=== PATIENT | female | born 1950 | race Caucasian/White ===

== ENCOUNTER 2018-07-12 15:25 | Outpatient (REF) | payer MEDICARE, MEDICAID, SELFPAY ==
[2018-07-12 19:25] LABS: Hemoglobin A1C 6.1 % (4.5-6.2)
[2018-07-12 19:37] LABS: Anion Gap 8.5 mmol/L (3-11); BUN 13 mg/dL (7-18); CO2 28.5 mmol/L (21.0-32.0); CREATININE 1.12 mg/dL (0.55-1.02); Calcium 9.1 mg/dL (8.5-10.1); Chloride 107 mmol/L (98-107); Estimated GFR 48.23 (mL/min/1.73m2); Glucose 142 mg/dL (70-100); Potassium 3.9 mmol/L (3.5-5.1); Sodium 144 mmol/L (136-145); TSH 1.43 uIU/mL (0.358-3.74)
== END 2018-07-12 15:45 ==
LOC: NCHCN 15:25
PROVIDERS: PCP Internal Medicine; Visit Provider Internal Medicine
DX: I10 Essential (primary) hypertension (principal); M54.32 Sciatica, left side; E11.9 Type 2 diabetes mellitus without complications; I87.2 Venous insufficiency (chronic) (peripheral)
CPT/HCPCS: 80048; 83036; 84443

== ENCOUNTER 2019-10-06 12:46 | Outpatient (REF) | payer MEDICARE, SELFPAY ==
[2019-10-06 19:55] LABS: ALT 24 U/L (14-59); Anion Gap 9.3 mmol/L (3-11); BUN 20 mg/dL (7-18); CO2 25.7 mmol/L (21.0-32.0); CREATININE 0.97 mg/dL (0.55-1.02); Calcium 8.9 mg/dL (8.5-10.1); Chloride 106 mmol/L (98-107); Estimated GFR 56.77 (mL/min/1.73m2); Glucose 101 mg/dL (74-106); LDL CHOLESTEROL 54 mg/dL (<100); Potassium 4.4 mmol/L (3.5-5.1); Sodium 141 mmol/L (136-145)
== END 2019-10-06 13:06 ==
LOC: NCHCN 12:46
PROVIDERS: PCP Internal Medicine; Visit Provider Internal Medicine
DX: I10 Essential (primary) hypertension (principal); R73.03 Prediabetes; M54.32 Sciatica, left side; E66.9 Obesity, unspecified
CPT/HCPCS: 80048; 83721; 84460

== ENCOUNTER 2021-01-24 17:21 | Outpatient (REF) | payer MEDICARE, SELFPAY ==
[2021-01-24 19:13] LABS: HCT 42.1 % (36.0-46.0); HGB 13.4 g/dL (11.2-15.7); MCH 29.3 pg (27.0-33.0); MCHC 31.8 % (32.0-36.0); MCV 91.9 fL (80-95); Platelet Count 331 10^3/uL (130-400); RBC 4.58 10^6/uL (3.93-5.22); RDW 12.6 % (11.7-14.6); RDW-SD 42.5 fL; WBC 7.08 10^3/uL (4.4-10.8)
[2021-01-24 19:52] LABS: ALT 31 U/L (14-59); BUN 19 mg/dL (7-18); Calcium 9.1 mg/dL (8.5-10.1); Chloride 106 mmol/L (98-107); Estimated GFR 54.66 (mL/min/1.73m2); Glucose 106 mg/dL (74-106); LDL CHOLESTEROL 51 mg/dL (<100); Potassium 3.8 mmol/L (3.5-5.1); Sodium 144 mmol/L (136-145); TSH 0.95 uIU/mL (0.36-3.74)
== END 2021-01-24 17:22 | disposition home or self-care (01) ==
LOC: NCHCN 17:21
PROVIDERS: PCP Internal Medicine; Visit Provider Internal Medicine
DX: R73.03 Prediabetes (principal); E66.9 Obesity, unspecified; G25.0 Essential tremor; Z00.00 Encounter for general adult medical examination without abnormal findings
CPT/HCPCS: 80048; 83721; 85027; 84443; 84460

== ENCOUNTER 2022-02-03 17:01 | Outpatient (REF) | payer MEDICARE, SELFPAY ==
[2022-02-03 19:46] LABS: ALT 26 U/L (14-59); Anion Gap 6.3 mmol/L (3-11); BUN 18 mg/dL (7-18); CO2 30.7 mmol/L (21.0-32.0); CREATININE 1.2 mg/dL (0.55-1.02); Calcium 9.2 mg/dL (8.5-10.1); Calculated LDL 81 mg/dL (<100); Chloride 102 mmol/L (98-107); Cholesterol 176 mg/dL (<200); Estimated GFR 48.09 (mL/min/1.73m2); Glucose 140 mg/dL (74-106); HDL Cholesterol 51 mg/dL (40-60); Potassium 4.4 mmol/L (3.5-5.1); Sodium 139 mmol/L (136-145); Triglyceride 224 mg/dL (<150)
[2022-02-03 19:58] LABS: Creatine Kinase 35 U/L (26-192)
== END 2022-02-03 17:02 | disposition home or self-care (01) ==
LOC: NCHCN 17:01
PROVIDERS: PCP Internal Medicine; Visit Provider Internal Medicine
DX: G89.29 Other chronic pain (principal); M54.32 Sciatica, left side; Z00.00 Encounter for general adult medical examination without abnormal findings
CPT/HCPCS: 80048; 80061; 82550; 84460

== ENCOUNTER 2022-05-15 18:29 | Outpatient (REF) | payer MEDICARE, SELFPAY ==
[2022-05-15 19:22] LABS: Abs Immature Grans 0.09 10^3/uL (0.0-0.06); Absolute Basophil Count 0.12 10^3/uL (0.0-0.2); Absolute Eosinophil Count 0.31 10^3/uL (0.0-0.7); Absolute Lymphocyte Count 2.06 10^3/uL (1.2-3.4); Absolute Monocyte Count 0.72 10^3/uL (0.1-0.8); Absolute Neutrophil Count 5.31 10^3/uL (1.2-6.7); Basophils % 1.4; Eosinophils % 3.6; HGB 13.2 g/dL (11.2-15.7); Lymphocytes % 23.9; MCH 31.6 pg (27.0-33.0); MCHC 34.7 % (32.0-36.0); MCV 91 fL (80-95); MPV 10.1 fL (8.0-11.0); Monocytes % 8.4; Neutrophils % 61.7; Platelet Count 298 10^3/uL (130-400); RBC 4.18 10^6/uL (3.93-5.22); RDW 12.6 % (11.7-14.6); RDW-SD 40.9 fL; WBC 8.61 10^3/uL (4.4-10.8)
[2022-05-15 19:34] LABS: ALT 25 U/L (14-59); AST 16 U/L (15-37); Albumin 3.7 g/dL (3.4-5.0); Alkaline Phosphatase 78 U/L (46-116); Anion Gap 11.2 mmol/L (3-11); BUN 23 mg/dL (7-18); Bilirubin, Total 0.6 mg/dL (0.2-1.0); CO2 26.8 mmol/L (21.0-32.0); CREATININE 1.2 mg/dL (0.55-1.02); Calcium 9.4 mg/dL (8.5-10.1); Chloride 104 mmol/L (98-107); Estimated GFR 48.09 (mL/min/1.73m2); Glucose 122 mg/dL (74-106); Potassium 3.9 mmol/L (3.5-5.1); Sodium 142 mmol/L (136-145); Total Protein 7.3 g/dL (6.4-8.2); Troponin I < 50 ng/L (<or=60)
[2022-05-15 19:53] LABS: D-Dimer 702 ng/mlFEU (<500)
== END 2022-05-15 18:30 | disposition home or self-care (01) ==
LOC: NCHCN 18:29
PROVIDERS: PCP Internal Medicine; Visit Provider Internal Medicine
DX: R73.9 Hyperglycemia, unspecified (principal); I95.9 Hypotension, unspecified; J18.9 Pneumonia, unspecified organism
CPT/HCPCS: 80053; 84484; 85025; 85379

== ENCOUNTER 2024-02-24 22:29 | Outpatient (REF) | payer MEDICARE, SELFPAY ==
--- OUTSIDE RECORDS SUMMARY | 2024-02-24 22:42 | XMS_ITS | Clinical Summary ---
Author Organization [facility] Address [address] [place] [address] Care Team Providers Care Imaging Administrator Name Role Phone Henrry Alonso MD Primary Care Provider Social History Tobacco Use Types Packs/Day Years Used Date Smoking Tobacco: Never Assessed Comments Unknown Sex and Gender Information Value Date Recorded Sex Assigned at Not on file Legal Sex Female 18:51 EST Gender Identity Not on file Sexual Orientation Not on file Plan of Treatment Health Maintenance Due Date Last Done Comments Hepatitis C Screen 1950 Fall Risk Screening 2014 COVID-19 Vaccine (2023-25 season) 2023 RSV Immunization ( o r 60+ Years) (1 - 1-dose 75+ series) 2024 Insurance MEDICAID [place] [facility] Address: [address] [address] MEDICARE ACO [place] Care Teams Imaging Administrator Relationship Specialty Start Date End Date Henrry Alonso MD [address] [place] [phone] (work) PCP - General Internal Medicine - Primary Care 10/07/21
--- OUTSIDE RECORDS SUMMARY | 2024-02-24 22:42 | XMS_ITS | Continuity of Care Document ---
Author Organization [facility] Address [address] [place] [address] Care Team Providers Care Account Executive Trainee Name Role Phone Henrry Montiel Primary Care Physician Encounter [facility] Date(s): 06/08/23 - 06/08/[address] [id number] Discharge Disposition: Home or Self Care Attending Physician: Henrry Montiel MD Admitting Physician: Henrry Montiel MD Referring Physician: Henrry Montiel MD Allergies, Adverse Reactions, Alerts Substance Reaction Severity Status lisinopril Not available Moderate Active gabapentin Unknown Active penicillin V potassium Hives Unknown Activ e Hay Unknown Active Fiorinal Unknown Active Lyrica Unknown Active Chantix Unknown Active aspirin/butalbital/caffeine Not available Unknown Active Dust Unknown Active Immunizations Given and Recorded Vaccine Date Status Refusal Reason SARS-CoV-2 (COVID-19) mRNA-1273 vaccine 08/02/21 R ecorded SARS-CoV-2 (COVID-19) mRNA-1273 vaccine 01/24/21 R ecorded SARS-CoV-2 (COVID-19) mRNA-1273 vaccine 06/14/20 R ecorded SARS-CoV-2 (COVID-19) mRNA-1273 vaccine 05/17/20 R ecorded Medications acetaminophen-codeine 300 mg-30 mg oral tablet 1 tab, every 8 hr, 0 Refill(s) Start Date: 11/07/21 Status: Ordered buPROPion 150 mg/12 hours (SR) oral tablet, extended release 150 mg = 1 tab, Oral, Daily, # 180 tab, 0 Refill(s) Start Date: 10/29/21 Status: Ordered Delica Lancets 0 Refill(s) Start Date: 10/28/21 Status: Ordered Fish Oil 1000 mg oral capsule 1,000 mg = 1 cap, Oral, Daily, 0 Refill(s) Start Date: 10/28/21 Status: Ordered lisinopril-hydroCHLOROthiazide 20 mg-25 mg oral tablet 1 tab, Oral, Daily, # 30 tab, 0 Refill(s) Start Date: 10/29/21 Status: Ordered Melatonin Gummies 2 gummies, Chewed, every night at bedtime, 0 Refill(s) Start Date: 12/16/22 Status: Ordered multivitamin adult, oral tablet 0 Refill(s) Start Date: 10/28/21 Status: Ordered pantoprazole 40 mg oral delayed release tablet 40 mg = 1 tab, Oral, Daily, # 30 tab, 0 Refill(s) Start Date: 10/29/21 Status: Ordered propranolol 20 mg oral tablet 20 mg = 1 tab, Oral, Daily, # 180 tab, 0 Refill(s) Start Date: 10/29/21 Status: Ordered simvastatin 40 mg oral tablet 40 mg = 1 tab, Oral, every day at bedtime, # 30 tab, 0 Refill(s) Start Date: 10/29/21 Status: Ordered traZODone 50 mg oral tablet 50 mg = 1 tab, every night at bedtime, 0 Refill(s) Start Date: 11/07/21 Status: Ordered Ventolin HFA 90 mcg/inh inhalation aerosol 1 puffs, Inhale, every 4 hr, PRN as needed for wheezing, # 18 g, 0 Refill(s) Start Date: 10/29/21 Status: Ordered Vitamin C 1000 mg oral tablet 1,000 mg = 1 tab, Oral, Daily, # 30 tab, 0 Refill(s) Start Date: 10/29/21 Status: Ordered Problem List Condition Confirmation Course Effective Dates Status H ealth Status Informant Adjustment disorder Confirmed Active Anxiety Confirmed Active Asthma Confirmed Active Depression Confirmed Active Hernia of abdominal wall Confirmed Active Essential tremor Confirmed Active Fatigue Confirmed Active Chronic GERD Confirmed Active 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 1 Sex Female 1Quit 2020 Patient Care team information Care Team Personnel Name: [facility] Position: No Access Member Role: Primary Care Physician Address: Address: [address] Name: [facility] Position: Physician Member Role: Informed Provider Address: Address: [address] [place] [address] Care Team Related Persons Name: BENJI HARVEY Name: NADINE WOODALL
--- OUTSIDE RECORDS SUMMARY | 2024-02-24 22:42 | XMS_ITS | Clinical Summary ---
Author Organization [facility] Address [place] [address] Care Team Providers Care Human Resource Internship Name Role Phone Henrry Alonso MD Primary Care Provider [phone] Social History Tobacco Use Types Packs/Day Years Used Date Smoking Tobacco: Never Assessed Sex and Gender Information Value Date Recorded Sex Assigned at Not on file Gender Identity Not on file Sexual Orientation Not on file Plan of Treatment Health Maintenance Due Date Last Done Comments CT Colonography 1950 Colonoscopy 1950 Colorectal Cancer Screening 1950 FIT DNA 1950 FIT 1950 Sigmoidoscopy (10 year) with FIT yearly 1950 Sigmoidoscopy 1950 Hepatitis C Screening 06/25/1967 Tetanus/Diphtheria/Pertussis Vaccines (1 - Tdap) 1968 Breast Cancer Share Decision Needed 1989 Breast Cancer screening 1989 Zoster vaccine (1 of 2) 06/25/1999 Advance Directive 2004 Bone Density Scan 2014 Pneumoccocal Vaccine: 65+ (1 of 1 - PCV) 2014 Covid-19 Vaccine ( - 2023-2 5 season) 2023 08/02/2021, 01/24/2021, 06/14/2020, Additional history exists Influenza (Flu) vaccine (1 o f 1 - Influenza standard series) 11/08/2023 Care Teams Human Resource Internship Relationship Specialty Start Date End Date Henrry Alonso MD [address] [place] [address] PCP - General 01/29/10
--- OUTSIDE RECORDS SUMMARY | 2024-02-24 22:42 | XMS_ITS | Encounter Summary ---
Author Organization [facility] Address [address] [place] [address] Care Team Providers Care Computer Numerical Control Grinder Name Role Phone Henrry Alonso MD Primary Care Provider [phone] Encounter Details Date Type Department Care Team (Late st Contact Info) Description 11/18/2021 Lab Requisition [facility] Pathology & Laboratory Medicine - [facility] [address] [place] [address] Nigel Hameed [address] [address] Encounter for other general examination Social History Tobacco Use Types Packs/Day Years Used Date Smoking Tobacco: Never Assessed Comments Unknown Sex and Gender Information Value Date Recorded Sex Assigned at Not on file Legal Sex Female 18:51 EST Gender Identity Not on file Sexual Orientation Not on file documented as of this encounter Plan of Treatment Not on file documented as of this encounter Procedures Procedure Name Priority Date/Time Associated Diagnosis Comments SURGICAL PATHOLOGY Today 11/18/2021 8:26 EDT documented in this encounter Results * SURGICAL PATHOLOGY (11/18/2021 8:26 EDT) Note to Patient The following pathology results have been interpreted by your pathologist and may be available to you before your health provider has had the opportunity to review them. Please allow time for your provider to receive these results and explore management options, if applicable. 11/21/2021 10:00 EDT [facility] Final Diagnosis A. COLON, CECUM, POLYPS, BIOPSY: - Tubular adenoma. B. COLON, ASCENDING, POLYP, BIOPSY: - Tubular adenoma. C. COLON, TRANSVERSE, POLYPS, BIOPSY: - Tubular adenoma. 11/21/2021 10:00 [facility] Attestation There was significant resident/fellow involvement in the diagnostic evaluation of this case. By the signature below, the attending physician certifies that they have personally conducted a gross and/or microscopic examination of the described specimens and rendered or confirmed the above diagnosis. 11/21/2021 10:00 [facility] at 1000 Clinical History Family H/O colon cancer, 5 polyps, sigmoid colon diverticulosis 11/21/2021 10:00 [facility] Gross Description A. NOTE TO PATHOLOGIST: The requisition lists the specimen as cecal polyps x2, however only one piece of tissue is identified in the specimen container. Received in formalin labelled with proper patient identification (initials G, S) and A. Cecal polyps x2 is a single rome-yellow tissue fragment (0.4 x 0.3 x 0.1 cm). Submitted intact in A1. B. Received in formalin labelled with proper patient identification (initials G, S) and B. Ascending colon polyp is a single rome-white polypoid tissue (0.4 x 0.3 x 0.1 cm) with opaque rome mucosa attached to one end (0.2 x 0.2 by less than 0.1 cm).. The specimen is bisected and entirely submitted in B1. C. Received in formalin labelled with proper patient identification (initials G, S) and C. Transverse colon x2 are two opaque rome focally dark brown speckled tissues (0.8 x 0.5 by less than 0.1 cm and 0.6 x 0.6 by less than 0.1 cm). Entirely submitted in C1. GATITO YOST 11/19/2021 8:47 11/21/2021 10:00 [facility] Resident/Bharat w: Sea Segura MD 11/21/2021 10:00 [facility] Performing Lab [facility] 11/21/2021 10:00 [facility] Scanned Images 11/21/2021 10:00 [facility] Tissue ENTIRE TRANSVERSE COLON / Unknown 11/18/2021 8:26 EDT 11/19/2021 7:47 EDT Tissue specimen (specimen) ASCENDING COLON STRUCTURE / Unknown 11/18/2021 8:26 EDT 11/19/2021 7:47 EDT Tissue specimen (specimen) TRANSVERSE COLON STRUCTURE / Unknown 11/18/2021 8:26 EDT 11/19/2021 7:47 EDT us Nigel Hameed PATHOLOGY ORDERABLES Final Res ult [facility] [address] [place] [address] documented in this encounter Visit Diagnoses Diagnosis Encounter for other general examination documented in this encounter Care Teams Computer Numerical Control Grinder Relationship Specialty Start Date End Date Henrry Alonso MD [address] [place] [address] PCP - General Internal Medicine - Primary Care 10/07/21 documented as of this encounter
--- OUTSIDE RECORDS SUMMARY | 2024-02-24 22:42 | XMS_ITS | Encounter Summary ---
Author Organization [facility] Address [address] [place] [address] Care Team Providers Care Stretching Machine Tender Frame Name Role Phone Henrry Alonso MD Primary Care Provider [phone] Encounter Details Date Type Department Care Team (Late st Contact Info) Description 01/01/2023 Lab Requisition [facility] Pathology & Laboratory Medicine - [address] [address] Salo Owusu MD [address] [place] [phone] Encounter for other general examination Social History [...] Date/Time Associated Diagnosis Comments SURGICAL PATHOLOGY Today 12/31/2022 19 :28 EDT documented in this encounter Results * SURGICAL PATHOLOGY (12/31/2022 19:28 EDT) Note to Patient The following pathology results have been interpreted by your pathologist and may be available to you before your health provider has had the opportunity to review them. Please allow time for your provider to receive these results and explore management options, if applicable. 01/06/2023 17:58 EDT [facility] Final Diagnosis A. GALLBLADDER, CHOLECYSTECTOMY: - Chronic cholecystitis. - Cholelithiasis. 01/06/2023 17:58 EDT [facility] Attestation By the signature below, the attending physician certifies that they have 1) personally conducted a gross and/or microscopic examination of the described specimen(s), and/or personally interpreted the results of laboratory testing of the described specimen(s), and 2) personally rendered or confirmed the above diagnosis. 01/06/2023 17:58 T [facility] at 1758 Clinical History Acute cholecystitis 01/06/2023 17:58 EDT [facility] Gross Description A. Received in formalin labelled with proper patient identification (initials G, S) and gallbladder is an intact gallbladder with an attached segment of cystic duct (7.7 x 3.5 x 2.6 cm). A cystic duct lymph node is not present. The serosa is red-brown to pink-rome. The mucosa is velvety, rome to focally red-brown and the wall is 0.4 cm in thickness. The cystic duct lumen is patent and measures 0.2 cm in diameter. The cystic duct margin is inked blue. Two black granular to smooth calculi are present (0.8 x 0.7 x 0.4 cm and 2.0 x 2.0 x 1.6 cm). Two manufacturer's representative sections and the en face cystic duct margin are submitted in A1. GUICHO CÁRDENAS(ASCP) 01/02/2023 9:43 01/06/2023 17:58 EDT [facility] Performing Lab [facility] 01/06/2023 17:58 T [facility] Scanned Images 01/06/2023 17:58 T [facility] Tissue GALLBLADDER STRUCTURE / Unknown 12/31/2022 19:28 EDT 01/02/2023 8:16 EDT us Salo Owusu MD PATHOLOGY ORDERABLES Final Resul t [facility] [address] [place] [address] documented in this encounter Visit Diagnoses Diagnosis Encounter for other general examination documented in this encounter Care Teams Stretching Machine Tender Frame Relationship Specialty Start Date End Date Primeau, Henrry E, MD [address] [place] [address] PCP - General Internal Medicine - Primary Care 10/07/21 documented as of this encounter
--- OUTSIDE RECORDS SUMMARY | 2024-02-24 22:42 | XMS_ITS | Referral Summary ---
Author Organization [facility] Address [address] [place] [address] Care Team Providers Care Capital Project Engineer Name Role Phone Henrry Alonso MD Primary Care Provider Social History Tobacco Use Types Packs/Day Years Used Date Smoking Tobacco: Never Assessed Comments Unknown Sex and Gender Information Value Date Recorded Sex Assigned at Not on file Legal Sex Female 18:51 EST Gender Identity Not on file Sexual Orientation Not on file Plan of Treatment Not on file Insurance [place]ID [place] [employer] Care Teams Capital Project Engineer Relationship Specialty Start Date End Date Henrry Alonso MD [address] [place] [address] PCP - General Internal Medicine - Primary Care 10/07/21
--- OUTSIDE RECORDS SUMMARY | 2024-02-24 22:42 | XMS_ITS | Continuity of Care Document ---
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 [address] [place] [address] Encounter Diagnosis Acute cholecystitis(Discharge Diagnosis) - 12/30/22 Impacted gallstone of gallbladder(Discharge Diagnosis) - 12/30/22 HTN (hypertension)(Discharge Diagnosis) - 12/30/22 HLD (hyperlipidemia)(Discharge Diagnosis) - 12/30/22 Major depressive disorder(Discharge Diagnosis) - 12/30/22 Hypomagnesemia(Discharge Diagnosis) - 01/01/23 Abdominal pain(Discharge Diagnosis) - 01/01/23 Asthma(Discharge Diagnosis) - 01/02/23 Essential tremor(Discharge Diagnosis) - 01/02/23 Sciatica(Discharge Diagnosis) - 01/02/23 Anemia(Discharge Diagnosis) - 01/02/23 Discharge Disposition: Home or Self Care Attending Physician: Brice Christine DO Admitting Physician: Krishan Torres TACK PULLER Allergies, Adverse Reactions, Alerts Substance Reaction Severity Status gabapentin Unknown Active penicillin V potassium Hives Unknown Activ e Hay Unknown Active Fiorinal Unknown Active Lyrica Unknown Active Chantix Unknown Active Dust Unknown Active Assessment and Plan Future Appointments Diagnostic Tests Pending * Surgical Pathology [facility] 12/31/22 Functional Status 01/01/23 Dinner Percent 50 12/31/22 Anti-Embolism Device Activity: Applied 12/31/22 Living Environment No Living Environmen t Information Available Lives In Multilevel home Lives With Other: Friend and he r grown son. Living Situation Home independently Patient's Responsibilities Other: Pt rep orts being (I) with all needs prior to admission. Home Equipment Cane 1 Special Services and Community Resources None 12/30/22 Family Member Travel History No recent t ravel Recent Travel History No recent travel Other exposure to Infectious Disease Non e 1Result Comment: Cane only used occasionally. Immunizations Given and Recorded Vaccine Date Status [...] 0 Refill(s) Start Date: 10/29/21 Status: Ordered Mental Status 12/30/22 Eye Opening Response Jamar Spontaneous ly Best Verbal Response Jamar Oriented Best Motor Response [place] Localizes to noxious stimuli [place] Coma Score 14 Problem List Condition Confirmation Course Effective Dates [...] Procedure Date Related Diagnosis Body Site Status Colonoscopy 11/17/21 Completed hand surgery Completed Hemorrhoidectomy Complete d Reconstruction of esophagus Completed Total knee arthroplasty C ompleted Results Laboratory List Name Date C-Reactive Protein (CRP) 01/02/23 CBC w/ Diff 01/02/23 Comprehensive Metabolic Panel 01/02/23 Magnesium Level 01/02/23 Phosphorus Level 01/02/23 Automated Diff 01/02/23 .Manual Differential ([facility]) 01/01/23 C-Reactive Protein (CRP) 01/01/23 CBC w/ Diff 01/01/23 Comprehensive Metabolic Panel 01/01/23 Magnesium Level 01/01/23 Phosphorus Level 01/01/23 Automated Diff 12/31/22 C-Reactive Protein (CRP) 12/31/22 CBC w/ Diff 12/31/22 Comprehensive Metabolic Panel 12/31/22 Magnesium Level 12/31/22 Phosphorus Level 12/31/22 SARS-CoV-2 (COVID-19) RNA (ID Now) 12/30 Urinalysis with Micro if Indicated and C ulture if Indicated 12/30/22 Automated Diff 12/30/22 Most recent to oldest [Reference Range]: 1 2 3 WBC [5.0-10.0 x10^3/mcL] 10.0 x10^3/mcL (01/02/23 7:05 AM) 10.8 x10^3/mcL *HI* (01/01/23 7:00 AM) 6.0 x10^3/mcL (12/31/22 6:55 AM) RBC [4.1-5.3 x10^6/mcL] 3.2 x10^6/mcL *LOW* (01/02/23 7:05 AM) 3.8 x10^6/mcL *LOW* (01/01/23 7:00 AM) 3.9 x10^6/mcL *LOW* (12/31/22 6:55 AM) Segs Man [40-75 %] 86 % *HI* (01/01/23 7:00 AM) Lymph Man [20-50 %] 7 % *LOW* (01/01/23 7:00 AM) Neutro Auto [40.0-75.0 %] 75.3 % *HI* (01/02/23 7:05 AM) 57.3 % (12/31/22 6:55 AM) 61.0 % (12/30/22 5:24 PM) Lymph Auto [20.0-50.0 %] 12.2 % *LOW* (01/02/23 7:05 AM) 26.3 % (12/31/22 6:55 AM) 22.1 % (12/30/22 5:24 PM) [place] Auto [2.0-15.0 %] 6.5 % (01/02/23 7:05 AM) 8.7 % (12/31/22 6:55 AM) 9.1 % (12/30/22 5:24 PM) Basophil Auto [0.0-1.0 %] 0.4 % (01/02/23 7:05 AM) 1.0 % (12/31/22 6:55 AM) 1.1 % *HI* (12/30/22 5:24 PM) [place] Man [2-15 %] 5 % (01/01/23 7:00 AM) Eos Man [1-6 %] 0 % *LOW* (01/01/23 7:00 AM) BUN [7-18 mg/dL] 6 mg/dL *LOW* (01/02/23 7:05 AM) 7 mg/dL (01/01/23 7:00 AM) 11 mg/dL (12/31/22 6:55 AM) UA Color Dark Yellow (12/30/22 6:03 PM) Glucose Level [74-106 mg/dL] 96 mg/dL (01/02/23 7:05 AM) 141 mg/dL *HI* (01/01/23 7:00 AM) 98 mg/dL (12/31/22 6:55 AM) Potassium Level [3.5-5.1 mmol/L] 3.9 mmol/L (01/02/23 7:05 AM) 3.9 mmol/L (01/01/23 7:00 AM) 4.2 mmol/L (12/31/22 6:55 AM) MCV [80.0-96.0 fL] 90.8 fL (01/02/23 7:05 AM) 91.5 fL (01/01/23 7:00 AM) 90.3 fL (12/31/22 6:55 AM) UA Urobilinogen Positive *ABN* (12/30/22 6:03 PM) RBC Morph Normal (01/01/23 7:00 AM) UA Bili [Negative] 1+ *ABN* (12/30/22 6:03 PM) CRP [<=10.0 mg/L] 117.2 mg/L *HI* (01/02/23 7:05 AM) 58.3 mg/L *HI* (01/01/23 7:00 AM) 24.5 mg/L *HI* (12/31/22 6:55 AM) UA Ketones Negative (12/30/22 6:03 PM) AST [15-37 unit/L] 28 unit/L (01/02/23 7:05 AM) 64 unit/L *HI* (01/01/23 7:00 AM) 56 unit/L *HI* (12/31/22 6:55 AM) ALT [14-59 unit/L] 130 unit/L *HI* (01/02/23 7:05 AM) 209 unit/L *HI* (01/01/23 7:00 AM) 244 unit/L *HI* (12/31/22 6:55 AM) MCHC [31.0-35.0 g/dL] 32.8 g/dL (01/02/23 7:05 AM) 32.8 g/dL (01/01/23 7:00 AM) 33.1 g/dL (12/31/22 6:55 AM) Sodium Level [136-145 mmol/L] 140 mmol/L (01/02/23 7:05 AM) 139 mmol/L (01/01/23 7:00 AM) 141 mmol/L (12/31/22 6:55 AM) UA Leuk Est Negative (12/30/22 6:03 PM) UA Nitrite Negative (12/30/22 6:03 PM) UA Glucose [Negative] Negative (12/30/22 6:03 PM) Hct [37.0-47.0 %] 28.7 % *LOW* (01/02/23 7:05 AM) 34.5 % *LOW* (01/01/23 7:00 AM) 35.3 % *LOW* (12/31/22 6:55 AM) Calcium Level [8.5-10.1 mg/dL] 7.8 mg/dL *LOW* (01/02/23 7:05 AM) 8.2 mg/dL *LOW* (01/01/23 7:00 AM) 8.5 mg/dL (12/31/22 6:55 AM) Phosphorus Level [2.6-4.7 mg/dL] 2.3 mg/dL *LOW* (01/02/23 7:05 AM) 3.2 mg/dL (01/01/23 7:00 AM) 4.0 mg/dL (12/31/22 6:55 AM) Albumin Level [3.4-5.0 g/dL] 2.1 g/dL *LOW* (01/02/23 7:05 AM) 2.6 g/dL *LOW* (01/01/23 7:00 AM) 2.6 g/dL *LOW* (12/31/22 6:55 AM) Protein Total [6.4-8.2 g/dL] 5.1 g/dL *LOW* (01/02/23 7:05 AM) 5.9 g/dL *LOW* (01/01/23 7:00 AM) 5.9 g/dL *LOW* (12/31/22 6:55 AM) UA Protein Negative (12/30/22 6:03 PM) MCH [26.0-32.0 pg] 29.7 pg (01/02/23 7:05 AM) 30.0 pg (01/01/23 7:00 AM) 29.9 pg (12/31/22 6:55 AM) Magnesium Level [1.8-2.4 mg/dL] 1.9 mg/dL (01/02/23 7:05 AM) 1.6 mg/dL *LOW* (01/01/23 7:00 AM) 1.6 mg/dL *LOW* (12/31/22 6:55 AM) Neutro Absolute 7.6 x10^3/mcL *NA* (01/02/23 7:05 AM) 3.4 x10^3/mcL *NA* (12/31/22 6:55 AM) 4.3 x10^3/mcL *NA* (12/30/22 5:24 PM) Bilirubin Total [0.2-1.0 mg/dL] 0.8 mg/dL (01/02/23 7:05 AM) 0.7 mg/dL (01/01/23 7:00 AM) 0.6 mg/dL (12/31/22 6:55 AM) Hgb [12.0-16.0 g/dL] 9.4 g/dL *LOW* (01/02/23 7:05 AM) 11.3 g/dL *LOW* (01/01/23 7:00 AM) 11.7 g/dL *LOW* (12/31/22 6:55 AM) Alk Phos [46-146 unit/L] 170 unit/L *HI* (01/02/23 7:05 AM) 179 unit/L *HI* (01/01/23 7:00 AM) 206 unit/L *HI* (12/31/22 6:55 AM) UA Blood Negative (12/30/22 6:03 PM) Band Man [0-5 %] 1 % (01/01/23 7:00 AM) UA Spec Grav 1.010 *NA* (12/30/22 6:03 PM) Platelets [130-450 x10^3/mcL] 236 x10^3/mcL (01/02/23 7:05 AM) 278 x10^3/mcL (01/01/23 7:00 AM) 241 x10^3/mcL (12/31/22 6:55 AM) CO2 [21-32 mmol/L] 24 mmol/L (01/02/23 7:05 AM) 28 mmol/L (01/01/23 7:00 AM) 27 mmol/L (12/31/22 6:55 AM) UA pH 6.0 *NA* (12/30/22 6:03 PM) eGFR Non-AA [>=60] 70 (01/02/23 7:05 AM) 57 *LOW* (01/01/23 7:00 AM) 54 *LOW* (12/31/22 6:55 AM) eGFR AA [>=60] 70 (01/02/23 7:05 AM) 57 *LOW* (01/01/23 7:00 AM) 54 *LOW* (12/31/22 6:55 AM) UA Appear Clear (12/30/22 6:03 PM) Chloride Level [98-107 mmol/L] 108 mmol/L *HI* (01/02/23 7:05 AM) 107 mmol/L (01/01/23 7:00 AM) 108 mmol/L *HI* (12/31/22 6:55 AM) RDW-CV [11.5-14.5 %] 13.0 % (01/02/23 7:05 AM) 12.5 % (01/01/23 7:00 AM) 12.5 % (12/31/22 6:55 AM) Imm Gran Auto [0.0-0.9 %] 1.2 % *HI* (01/02/23 7:05 AM) 0.8 % (12/31/22 6:55 AM) 0.9 % (12/30/22 5:24 PM) Slide Review Man Diff (01/01/23 7:00 AM) Abs Neut Man 9.4 x10^3/mcL *NA* (01/01/23 7:00 AM) Creatinine Level [0.55-1.02 mg/dL] 0.87 mg/dL (01/02/23 7:05 AM) 1.04 mg/dL *HI* (01/01/23 7:00 AM) 1.09 mg/dL *HI* (12/31/22 6:55 AM) SARS-CoV-2 (COVID-19) RNA (ID Now) [Not Detected] Not Detected (12/30/22 7:24 PM) Baso Man [0-1 %] 1 % (01/01/23 7:00 AM) Eos, Auto [1.0-6.0 %] 4.4 % (01/02/23 7:05 AM) 5.9 % (12/31/22 6:55 AM) 5.8 % (12/30/22 5:24 PM) Vital Signs Most recent to oldest [Reference Range]: 1 2 3 Temperature Axillary [35.2-38 Deg C] 36 Deg C (12/31/22 7:33 PM) 36.2 Deg C (12/31/22 5:30 PM) 36.2 Deg C (12/31/22 5:13 PM) Temperature Temporal Artery [36-38 Deg C] 37.5 Deg C (01/02/23 7:53 AM) 37.4 Deg C (01/02/23 3:49 AM) 37 Deg C (01/02/23 12:01 AM) Peripheral Pulse Rate [60-100 bpm] 75 bpm (01/02/23 9:50 AM) 76 bpm (01/02/23 7:53 AM) 72 bpm (01/02/23 3:49 AM) Heart Rate Monitored [60-100 bpm] 75 bpm (01/02/23 9:50 AM) 58 bpm *LOW* (12/31/22 7:33 PM) 62 bpm (12/31/22 7:30 PM) Respiratory Rate [12-24 br/min] 18 br/min (01/02/23 9:50 AM) 18 br/min (01/02/23 7:53 AM) 18 br/min (01/02/23 3:49 AM) Blood Pressure [90-140/60-90 mmHg] 164/72mmHg *HI* (01/02/23 8:45 AM) 170/85mmHg *HI* (01/02/23 7:53 AM) 144/81mmHg *HI* (01/02/23 3:49 AM) Mean Arterial Pressure, Cuff [65-140 mmHg] 119 mmHg (12/31/22 7:33 PM) 127 mmHg (12/31/22 7:30 PM) 106 mmHg (12/31/22 7:25 PM) Mean Arterial Pressure Cuff 98 mmHg (01/02/23 8:45 AM) 107 mmHg (01/02/23 7:53 AM) 100 mmHg (01/02/23 3:49 AM) Blood Pressure Location Right arm (01/01/23 1:22 AM) Left arm (12/31/22 3:58 AM) Right arm (12/30/22 11:53 PM) Blood Pressure Method Automatic (01/01/23 1:22 AM) Automatic (12/31/22 3:58 AM) Automatic (12/30/22 11:53 PM) Weight 106.2 kg (01/02/23 8:55 AM) 107.5 kg (01/01/23 4:41 PM) 104.8 kg (12/31/22 8:58 AM) Weight Dosing 99.00 kg (12/30/22 5:03 PM) Usual Weight 105 kg (12/30/22 8:58 PM) Weight Estimated 99.00 kg (12/30/22 4:55 PM) Height/Length Dosing 162.000 cm (12/30/22 5:03 PM) Height/Length Estimated 162.000 cm (12/30/22 4:55 PM) Social History Social History Type Response Tobacco Former tobacco user Tobacco Use:. 1 Sex Female 1Quit 2020 Hospital Discharge Instructions Patient Education 01/02/2023 11:04:28 Surgical Drain Home Care Surgical Drain Home Care Surgical drains are used to remove extra fluid that normally builds up in a surgical wound after surgery. A surgical drain helps to heal a surgical wound. Different kinds of surgical drains include: ??? Active drains. These drains use suction to pull drainage away from the surgical wound. Drainageflows through a tube to a container outside of the body. With these drains, you need to keep the bulb or the drainage container flat (compressed) at all times, except while you empty it. Flattening the bulb or container creates suction. ??? Passive drains. These drains allow fluid to drain naturally, by gravity. Drainage flows througha tube to a bandage (dressing) or a container outside of the body. Passive drains do not need to beemptied. A drain is placed during surgery. Right after surgery, drainage is usually bright red and a little thicker than water. The drainage may gradually turn yellow or pink and become thinner. It is likely that your health care provider will remove the drain when the drainage stops or when the amount decreases to 1???2 Tbsp (15???30 mL) during a 24-hour period. Supplies needed: ??? Tape. ??? Germ-free cleaning solution (sterile saline). ??? Cotton swabs. ??? Split gauze drain sponge: 4 x 4 inches (10 x 10 cm). ??? Gauze square: 4 x 4 inches (10 x 10 cm). How to care for your surgical drain Care for your drain as told by your health care provider. This is important to help prevent infection. If your drain is placed at your back, or any other udse-ul-gpbit area, ask another person to assist you in performing the following tasks: General care ??? Keep the skin around the drain dry and covered with a dressing at all times. ??? Check your drain area every day for signs of infection. Check for: ??? Redness, swelling, or pain. ??? Pus or a bad smell. ??? Cloudy drainage. ??? Tenderness or pressure at the drain exit site. Changing the dressing Follow instructions from your health care provider about how to change your dressing. Change your dressing at least once a day. Change it more often if needed to keep the dressing dry. Make sure you: 1. Gather your supplies. 2. Wash your hands with soap and water before you change your dressing. If soap and water are not available, use hand recruitment assistant. 3. Remove the old dressing. Avoid using scissors to do that. 4. Wash your hands with soap and water again after removing the old dressing. 5. Use sterile saline to clean your skin around the drain. You may need to use a cotton swab to clean the skin. 6. Place the tube through the slit in a drain sponge. Place the drain sponge so that it covers yourwound. 7. Place the gauze square or another drain sponge on top of the drain sponge that is on the wound. Make sure the tube is between those layers. 8. Tape the dressing to your skin. 9. Tape the drainage tube to your skin 1???2 inches (2.5???5 cm) below the place where the tube enters your body. Taping keeps the tube from pulling on any stitches (sutures) that you have. 10. Wash your hands with soap and water. 11. Write down the color of your drainage and how often you change your dressing. How to empty your active drain 1. Make sure that you have a measuring cup that you can empty your drainage into. 2. Wash your hands with soap and water. If soap and water are not available, use hand recruitment assistant. 3. Loosen any pins or clips that hold the tube in place. 4. If your health care provider tells you to strip the tube to prevent clots and tube blockages: ??? Hold the tube at the skin with one hand. Use your other hand to pinch the tubing with your thumb and first finger. ??? Gently move your fingers down the tube while squeezing very lightly. This clears any drainage, clots, or tissue from the tube. ??? You may need to do this several times each day to keep the tube clear. Do not pull on the tube. 5. Open the bulb cap or the drain plug. Do not touch the inside of the cap or the bottom of the plug. 6. Turn the device upside down and gently squeeze. 7. Empty all of the drainage into the measuring cup. 8. Compress the bulb or the container and replace the cap or the plug. To compress the bulb or the container, squeeze it firmly in the middle while you close the cap or plug the container. 9. Write down the amount of drainage that you have in each 24-hour period. If you have less than 2 Tbsp (30 mL) of drainage during 24 hours, contact your health care provider. 10. Flush the drainage down the toilet. 11. Wash your hands with soap and water. Contact a health care provider if: ??? You have redness, swelling, or pain around your drain area. ??? You have pus or a bad smell coming from your drain area. ??? You have a fever or chills. ??? The skin around your drain is warm to the touch. ??? The amount of drainage that you have is increasing instead of decreasing. ??? You have drainage that is cloudy. ??? There is a sudden stop or a sudden decrease in the amount of drainage that you have. ??? Your drain tube falls out. ??? Your active drain does not stay compressed after you empty it. Summary ??? Surgical drains are used to remove extra fluid that normally builds up in a surgical wound after surgery. ??? Different kinds of surgical drains include active drains and passive drains. Active drains use suction to pull drainage away from the surgical wound, and passive drains allow fluid to drain naturally. ??? It is important to care for your drain to prevent infection. If your drain is placed at your back, or any other haxq-js-dyjij area, ask another person to assist you. ??? Contact your health care provider if you have redness, swelling, or pain around your drain area. This information is not intended to replace advice given to you by your health care provider. Make sure you discuss any questions you have with your health care provider. Document Revised: 03/30/2019 Document Reviewed: 03/30/2019 [employer] Patient Education ?? 2022 [email or web address]. 01/02/2023 08:34:06 Cholecystostomy, Care After Cholecystostomy, Care After The following information offers guidance on how to care for yourself after your procedure. Your health care provider may also give you more specific instructions. If you have problems or questions, contact your health care provider. What can I expect after the procedure? After your procedure, it is common to have soreness near the incision site of your drainage tube (catheter). You may also have a small amount of fluid or blood coming from the catheter incision site. Follow these instructions at home: Incision care ??? Follow instructions from your health care provider about how to take care of your incision sitewhere the catheter was inserted. Make sure you: ??? Wash your hands with soap and water for at least 20 seconds before and after you change your bandage (dressing). If soap and water are not available, use hand recruitment assistant. ??? Change your dressing as told by your health care provider. ??? Check the catheter incision site every day for signs of infection. Check for: ??? Redness, swelling, or pain. ??? More fluid or blood. ??? Warmth. ??? Pus or a bad smell. ??? Do not take baths, swim, or use a hot tub until your health care provider approves. Ask your health care provider if you may take showers. You may only be allowed to take sponge baths. General instructions ??? Follow instructions from your health care provider about how to care for your catheter and collection bag at home. Your health care provider will show you: ??? How to record the amount of drainage from the catheter. ??? How to flush the catheter. ??? How to care for the catheter incision site. ??? Follow instructions from your health care provider about eating or drinking restrictions. ??? Take abgk-cax-tndcmxe and prescription medicines only as told by your health care provider. ??? Keep all follow-up visits. This is important. Contact a health care provider if: ??? You have a fever. ??? Your soreness at the incision site gets worse or does not get better with medicine. ??? You have redness, swelling, or pain around the catheter incision site. ??? You have more fluid or blood coming from the catheter incision site. ??? You have nausea or vomiting. Get help right away if: ??? You feel dizzy or you faint while standing. ??? The area around the catheter incision site feels warm to the touch. ??? You have pus or a bad smell coming from the catheter incision site. ??? You have shortness of breath. ??? You have a rapid heartbeat. ??? Your catheter becomes blocked. ??? Your catheter comes out of your abdomen. These symptoms may be an emergency. Get help right away. Call 911. ??? Do not wait to see if the symptoms will go away. Do not drive yourself to the hospital. ??? Do not drive yourself to the hospital. Summary ??? After your procedure, it is common to have soreness near the catheter incision site. ??? Change your dressing as told by your health care provider. ??? Check the catheter incision site every day for signs of infection. Check for redness, swelling,pain, fluid, blood, pus, warmth, or a bad smell. ??? Follow instructions from your health care provider about eating or drinking restrictions. This information is not intended to replace advice given to you by your health care provider. Make sure you discuss any questions you have with your health care provider. Document Revised: 08/27/2021 Document Reviewed: 08/27/2021 [employer] Patient Education ?? 2022 [email or web address] 01/02/2023 08:34:03 Cholecystitis Cholecystitis Cholecystitis is inflammation of the gallbladder. Cholecystitis is often called a gallbladder attack. The gallbladder is a pear-shaped organ that lies beneath the liver on the right side of the body.The gallbladder stores a fluid that helps the body digest fats (bile). If bile builds up in your gallbladder, your gallbladder becomes inflamed and can develop a serious infection. This condition may occur suddenly. Cholecystitis is a serious condition and requires treatment. What are the causes? The most common cause of this condition is gallstones. Gallstones can block the tube (duct) that carries bile out of your gallbladder. This causes bile to build up. Other causes include: ??? Damage to the gallbladder due to decreased blood flow. ??? Infection in the bile duct. ??? Scars, kinks, or adhesions in the bile duct. ??? Tumors in the liver, pancreas, or gallbladder. What increases the risk? You are more likely to develop this condition if: ??? You are female and between the ages of 55???62. ??? You take control pills or use estrogen. ??? You take certain medicines that increase your likelihood of developing gallstones. ??? You are obese. ??? You have a severe reaction to an infection (sepsis). The infection may be bacterial, fungal, parasitic, or viral. ??? You have been hospitalized due to trauma, such as a burn or critical illness. ??? You have not eaten or drank for a long period of time (prolonged fasting). What are the signs or symptoms? Symptoms of this condition include: ??? Tenderness in the upper right part of the abdomen. ??? A lump over the gallbladder. ??? Bloating in the abdomen. ??? Nausea. ??? Vomiting. ??? Fever. ??? Chills. How is this diagnosed? This condition is diagnosed with a medical history and physical exam. You may also have other tests, including: ??? Imaging tests, such as: ??? An ultrasound of the abdomen. ??? A CT scan of the abdomen. ??? A gallbladder nuclear scan (HIDA cholescintigraphy). This allows your health care provider to see the bile moving from your liver to your gallbladder and to your small intestine. ??? MRI. ??? Blood tests, such as: ??? A complete blood count. The white blood cell count may be higher than normal. ??? C-reactive protein (CRP) test. The level of CRP will be higher if there is an infection. ??? Liver function tests. Certain types of gallstones cause some results to be higher than normal. How is this treated? Treatment may include: ??? Pain medicine and IV fluids. ??? Not eating or drinking (fasting). This helps to take stress off of your gallbladder. ??? Antibiotic medicine. This is usually given through an IV. ??? Surgery to remove your gallbladder (cholecystectomy). ??? Gallbladder drainage. In this procedure, a tube is placed into the gallbladder to drain fluid. This may be done for people with moderate to severe cholecystitis who cannot have surgery. Follow these instructions at home: Medicines ??? Take ntfv-bvb-tevzpal and prescription medicines only as told by your health care provider. ??? If you were prescribed an antibiotic medicine, take it as told by your health care provider. Donot stop taking the antibiotic even if you start to feel better. General instructions ??? Follow instructions from your health care provider about what to eat or drink. When you are allowed to eat, avoid eating or drinking anything that triggers your symptoms. ??? Do not use any products that contain nicotine or tobacco. These products include cigarettes, chewing tobacco, and vaping devices, such as e-cigarettes. If you need help quitting, ask your health care provider. ??? Keep all follow-up visits. This is important. Contact a health care provider if: ??? Your pain is not controlled with medicine. ??? You have a fever. Get help right away if: ??? Your pain moves to another part of your abdomen or to your back. ??? You continue to have symptoms or you develop new symptoms even with treatment. These symptoms may be an emergency. Get help right away. Call 911. ??? Do not wait to see if the symptoms will go away. ??? Do not drive yourself to the hospital. Summary ??? Cholecystitis is inflammation of the gallbladder. ??? The most common cause of this condition is gallstones. Gallstones can block the tube (duct) that carries bile out of your gallbladder. ??? Common symptoms include tenderness in the abdomen, nausea, vomiting, fever, and chills. ??? This condition is treated with fasting, pain medicine, surgery to remove the gallbladder, antibiotic medicines, and gallbladder drainage. ??? Follow your health care provider's instructions for eating and drinking. Avoid eating anything that triggers your symptoms. This information is not intended to replace advice given to you by your health care provider. Make sure you discuss any questions you have with your health care provider. Document Revised: 08/27/2021 Document Reviewed: 08/27/2021 Elsevier Patient Education ?? 2022 [employer] Follow Up Care 12/30/2022 16:55:24 With:Gavin [facility], Henrry Zabala MD Address: [address] [phone] When:01/09/2023 Comments:Hospital follow up With:Dickson Mercedes DO Address: [address] [place] [id number] When:01/06/2023 Comments:Drain removal Pharmacology Note * Rosanna Zeng: PERFORM Event Display: Pharmacy Note Authored Date: [id number] TelePharmacy Home Medication List Update for Medication Reconciliation ??? Person Interviewed: patient ??? Quality of Interview/accuracy of medication list: fair ??? Sources used to compile medication list: ???[facility] medication list ???SureScripts ?? PCP/Specialist list ?? Retail pharmacy ?? Patient list ?? MAR ?? Other ??? Changes made to home medication list: o Additions: ??? [id number] 1 cap po daily (not sure of dose unable to add to med list in [facility]) o Deletions: ??? None o Changes: ??? Propranolol 20mg po daily (was bid) ??? Buproprion SR 150mg po daily (was bid) ??? Additional Notes: o Updated medication list with information provided by patient. Patient was unsure of doses for OTCmedications including CoQ10, melatonin, Fish oil and Vitamin C. ??? Recommended changes: o None The home medication list is now updated to the best of my knowledge and is ready to be reconciled by the provider. Please contact the TelePharmacy Medication Reconciliation Pharmacist at for any questions. Discharge instructions * Chuyita Persaud D: PERFORM Event Display: Discharge Instructions Authored Date: [id number] ROBERT ARREAGA :1950 Age:72 years Sex:Female Visit Date:12/30/2022 Primary Care Physician: Henrry Hodge MD Hospital Discharge Instructions We would like to thank you for allowing us to assist you with your healthcare needs. The following includes patient education materials and information regarding your injury/illness. Your Next Steps Instructions From Your Care Team Advance diet as tolerated. ?? You will likely need??mild laxative like senna tablets??for constipation, due to your increased pain meds. ?? Call if you have fever, worsening pain or severe shortness of breath. ?? Follow Dr. Owusu's instructions for managing your drain.?? We will plan to pull that??early next week.?? I will see you in 1 week.?? dr Alonso Discharge Orders Discharge Bathing Instructions, Keep drain site dry Discharge Diet Instruction, Regular home diet Discharge Surgical Wound Instructions, Keep drain site dry Follow Up Appointments Follow Up with??Dickson Mercedes DO When:??01/06/2023 01:00 AM EDT Why: Drain removal Where: [address] [place] [address]- [facility]:??01/09/2023 02:30 AM EDT Why: Hospital follow up Where: [address] [phone] Medications What How Much When Instructions Next Dose Changed buPROPion (buPROPion 150 mg/ 12 hours (SR) oral tablet, extended release) 1 tab Oral (given by mouth) Every day Resume home dose Changed melatonin (Melatonin Gummies) 2 gummies Chewed Every night at bedtime 01/02 @ 9pm Changed omega-3 polyunsaturated fatty acids (Fish Oil 1000 mg oral capsule) 1 Capsules Oral (given by mouth) Every day 01/03 @ 9am Changed propranolol (propranolol 20 mg oral tablet) 1 tab Oral (given by mouth) Every day 01/03 @ 9am Unchanged acetaminophen-codeine (acetaminophen-codeine 300 mg-30 mg oral tablet) 1 tab Every 8 hours resume home dose Unchanged albuterol (Ventolin HFA 90 mcg/ inh inhalation aerosol) 1 Puffs Inhale (breathe in) Every 4 hours as needed for as needed for wheezing as needed Unchanged ascorbic acid (Vitamin C 1000 mg oral tablet) 1 tab Oral (given by mouth) Every day 01/03 @ 9am Unchanged Delica Lancets Unchanged lisinopril-hydroCHLOROthiazide (lisinopril-hydroCHLOROthiazide 20 mg- 25 mg oral tablet) 1 tab Oral (given by mouth) Every day Resume home dose Unchanged multivitamin (multivitamin adult, oral tablet) 01/03 @ 9am Unchanged pantoprazole (pantoprazole 40 mg oral delayed release tablet) 1 tab Oral (given by mouth) Every day 01/03 @ 7am Unchanged simvastatin (simvastatin 40 mg oral tablet) 1 tab Oral (given by mouth) Every night at bedtime 10 @ 5pm Unchanged traZODone (traZODone 50 mg oral tablet) 1 tab Every night at bedtime 01/02 @ 9pm ?? What How Much When Comments Stop Taking dilTIAZem (dilTIAZem 180 mg/ 24 hours oral capsule, extended release) 1 Capsules Oral (given by mouth) Every day Your Summary Your Care Team Admitting Physician - Krishan Torres NP Attending Physician - Brice Christine DO Consulting Physician - Francoise BLOODSalo MD Primary Care Physician - [facility] Your Diagnosis Acute cholecystitis Impacted gallstone of gallbladder HTN (hypertension) HLD (hyperlipidemia) Major depressive disorder Hypomagnesemia Abdominal pain Asthma Essential tremor Sciatica Anemia Discharge Vitals Temperature??(Temporal Artery) 99.5 ??F (37.5 ??C) Heart Rate??(Peripheral) 75 Heart Rate??(Monitored) 75 Respiratory Rate?? 18 Blood Pressure?? 164/72?? Weight?? 234.17 lb (106.2 kg) Allergies Chantix Dust Fiorinal Hay Lyrica gabapentin penicillin V potassium??(Hives) Patient/Textile Bag Sewer Signature Patient Name:ROBERT ARREAGA I have received this information and my questions have been answered. Patient/Textile Bag Sewer Name: Patient/Textile Bag Sewer Signature: Relationship to Patient: Witness Name/Signature: Date: Electronically Signed on: 01/02/2023 12:02 EDTSigned by:MDR Consult note * Salo Reddy MD: PERFORM Event Display: Consultation Note Generic Authored Date: [id number] ROBERT ARREAGA :1950 Age:72 years Sex:Female Visit Date:12/30/2022 Primary Care Physician: Henrry Hodge MD Complaint Pt sent in by [facility] for 4 days of intermittent R side flank pain with nausea and subjective fever. History of Present Illness 72-year-old female patient presents to the emergency department today with complaints of??intermittent abdominal pain with nausea.?? Her ER work-up found her to have??cholecystitis with an impacted gallstone at the gallbladder neck.?? Medical history significant for anxiety/depression, asthma, GERD,??essential tremor, hyperlipidemia, hypertension.?? She is seen and evaluated at the bedside in theemergency department where she is awake, alert, oriented x3 she is not in any acute distress. ??Shedenies fever, chills, vomiting, chest pain, shortness of breath. ??Denies weakness or dizziness anddenies changes in urinary or bowel habits. ??Case was discussed with the ER physician prior to admission.?? Patient will be admitted as an inpatient??and started on IV antibiotics due to the elevatedwhite blood cell count??as well as??the nature of her cholecystitis.?? We will continue to monitor her CBC and trend her??metabolic profile daily as she does have a transaminitis with the??impacted gallstone.? First episodes??seem to be about 4 weeks ago??which have escalated over the past??week Review of Systems Constitutional: ??No fevers, ??No chills, ??No sweats Eye: ??No recent visual problems ENT: ??No ear pain, ??No nasal congestion, ??No sore throat Respiratory: ??No shortness of breath, ??No cough Cardiovascular: ??No Chest pain, ??No palpitations, ??No syncope Gastrointestinal: ??Nonausea, ??No vomiting, ??No diarrhea Genitourinary: ??No hematuria Aram/Lymph: ??No bruising tendency, ??No swollen lymph glands Endocrine: ??No excessive thirst, No excessive hunger Musculoskeletal: No back pain, No neck pain, No joint pain, No muscle pain, No decreased range of motion Integumentary: ??No rash, ??No pruritus, ??No abrasions Neurologic: Alert & oriented X 4 Psychiatric: ??No anxiety, ??No depression Physical Exam Vitals & Measurements T:??36.6?C ??(Temporal Artery)?? TMIN:??36.2?C ??(Temporal Artery)?? TMAX:??37?C ??(Temporal Artery)?? HR:??57??(Peripheral)?? RR:??18?? BP:??153/72?? SpO2:??96%?? HT:??162.000??cm?? WT:??104.8??kg?? Pain Score:??3?? O2 Therapy:??Room air?? FiO2:??96??(%)?? Peers no acute distress HEENT??eyes are nonicteric??pupils are equal??conjunctiva is clear Trachea??is in the midline without deviation Abdomen is obese??midline incision and laparoscopic incisions??status post hernia repair and??open Jairo fundoplication Right sided pain to the palpation Assessment/Plan 1.??Acute cholecystitis??K81.0 Plan to proceed with a laparoscopic cholecystectomy??because of her previous surgeries with mesh placement??attempt to proceed??laparoscopically 2.??Impacted gallstone of gallbladder??K80.20 3.??HTN (hypertension)??I10 4.??HLD (hyperlipidemia)??E78.5 5.??Major depressive disorder??F32.9 Flank pain??R10.9 Problem List/Past Medical History Ongoing Adjustment disorder Anxiety Asthma Chronic GERD Colon polyp Depression Essential tremor Fatigue Hernia of abdominal wall HPV in female Hyperlipemia Hypertension Obesity Osteoarthritis, knee Prediabetes Sciatica Venous insufficiency Historical GERD with apnea Procedure/Surgical History ???Colonoscopy (11/18/2021)???Hemorrhoidectomy???hand surgery???Reconstruction of esophagus???[place] arthroplasty Medications Inpatient acetaminophen, 1000 mg= 2 tab, Oral, every 6 hr, PRN atorvastatin, 20 mg= 2 tab, Oral, Daily buPROPion, 150 mg= 1 tab, Oral, BID hydroCHLOROthiazide, 25 mg= 1 tab, Oral, Daily lidocaine 1% injectable solution, 1 mg= 0.1 mL, Intradermal, As Directed, PRN lisinopril, 20 mg= 1 tab, Oral, Daily meropenem morphine, 2 mg= 0.4 mL, IV Push, every 2 hr, PRN Normal Saline Flush, 10 mL, IV Push, every 12 hr (dinesh) ondansetron, 4 mg= 2 mL, IV Push, every 6 hr, PRN oxyCODONE, 5 mg= 1 tab, Oral, every 6 hr, PRN pantoprazole, 40 mg= 1 tab, Oral, Daily propranolol, 20 mg= 2 tab, Oral, BID Sodium Chloride 0.9% 1,000 mL, 1000 mL, IV Sodium Chloride 0.9% with KCl 20 mEq/L 1,000 mL, 1000 mL, IV traZODone, 50 mg= 1 tab, Oral, every night at bedtime Ventolin HFA 90 mcg/inh inhalation aerosol, 1 puffs, Inhale, every 4 hr, PRN Vitamin C, 1000 mg= 2 tab, Oral, Daily Home acetaminophen-codeine 300 mg-30 mg oral tablet, 1 tab, every 8 hr buPROPion 150 mg/12 hours (SR) oral tablet, extended release, 150 mg= 1 tab, Oral, Daily Delica Lancets Fish Oil 1000 mg oral capsule, 1000 mg= 1 cap, Oral, Daily lisinopril-hydroCHLOROthiazide 20 mg-25 mg oral tablet, 1 tab, Oral, Daily Melatonin Gummies, 2 gummies, Chewed, every night at bedtime multivitamin adult, oral tablet pantoprazole 40 mg oral delayed release tablet, 40 mg= 1 tab, Oral, Daily propranolol 20 mg oral tablet, 20 mg= 1 tab, Oral, Daily simvastatin 40 mg oral tablet, 40 mg= 1 tab, Oral, every night at bedtime traZODone 50 mg oral tablet, 50 mg= 1 tab, every night at bedtime Ventolin HFA 90 mcg/inh inhalation aerosol, 1 puffs, Inhale, every 4 hr, PRN Vitamin C 1000 mg oral tablet, 1000 mg= 1 tab, Oral, Daily Allergies Chantix Dust Fiorinal Hay Lyrica gabapentin penicillin V potassium??(Hives) Social History Alcohol Never Electronic Cigarette/Vaping Electronic Cigarette Use: Never. Home/Environment Feels unsafe at home: No. Substance Use Never Tobacco Former tobacco user Tobacco Use:.- Comments: Quit 2020 Family History Cancer: Sister and Grandmother (M). Stroke: Father. Immunizations Vaccine Date Status SARS-CoV-2 (COVID-19) mRNA-1273 vaccine 08/02/2021 Recorded SARS-CoV-2 (COVID-19) mRNA-1273 vaccine 01/24/2021 Recorded SARS-CoV-2 (COVID-19) mRNA-1273 vaccine 06/14/2020 Recorded SARS-CoV-2 (COVID-19) mRNA-1273 vaccine 05/17/2020 Recorded Electronically Signed on 12/31/22 09:31 AM [facility], Salo Dixon MD web services manager Note * Chuyita Persaud D: PERFORM Event Display: Case Management Note Authored Date: [id number] Discharge instructions/education on cholecystectomy/cholecystitis reviewed with patient at bedside.Patient being discharged home with TRAY drain in place education provided on how to empty and care for this drain patient able to verbalize and demonstrate teach back of reviewed material. Patient is aware of follow-up with [facility] on 01/06 at 1:00. No home health services ordered upon discharge. No new medications ordered upon discharge. [facility] Patient denies any additional questions or concerns at this time. Patient denies any home medications or personal belongings in the [facility]. Contact information provided. Reportable signs and symptoms reviewed. Pharmacology Progress note * Charis Goldstein PharmD: PERFORM Event Display: Pharmacy Progress Note Authored Date: [id number] Pharmacy Progress Note Patient initiated on meropenem 1g q8h. CrCl >50 so no dose adjustment required. Patient has a documented severe penicillin allergy from [facility] and is at an increased risk for adverse outcomes from impacted gallstone/cholecystitis. Short term treatment with meropenem is appropriate at this time. JLD Electronically Signed on 12/31/22 09:48 AM Charis Goldstein PharmD Respiratory therapy Hospital Progress note * Georgette Ernst: PERFORM Event Display: Respiratory Therapy Progress Note Authored Date: [id number] ??ROBERT ARREAGA 72 Years Breath Sounds: 0950: clear Shift Events: 0950: Received pt on RA sating 95%, HR 75, RR 18 equal and nonlabored. Pt requested PRN Albuterol @this time. Pt states she uses it at home for allergies and would like it now for that reason. Pt received Albuterol MDI, tolerated well with no adverse reactions noted. Pt stated she felt better posttx but no change in BBS. Pt in no acute respiratory distress at this time. Respiratory Aerosol Therapy Assessment and Scoring Home Medication Routine: Albuterol Lung History (1) Smoking history less than 1 pack/day, History of lung disease(Asthma) Breath Sounds (0) Clear in all cooper Respiratory Rate (0) Less than or equal to 18 Modified Liam Scale or Observed Dyspnea (0) None Oxygen Therapy (0) Room air, at baseline home O2, post-op, or CHF Home Respiratory Medications (1) Rescue MDI less than or equal to 1 time per day Inhaler Use Assessment ? Clinically Stable? Yes? Can take a slow deep breath on command? Yes? Can perform a 3 second breath hold? Yes Respiratory total score: 2 Respiratory Guidelines 0-2 pts - No Therapy indicated Continue PRN Albuterol Electronically Signed on 01/02/23 11:23 AM Georgette Ernst * Topher Loja: PERFORM Event Display: Respiratory Therapy Progress Note Authored Date: [id number] ??ROBERT ARREAGA 72 Years MEASURED Body Mass Index: 40.05 kg/m2 (12/16/22 13:19:00) BSA Measured: 2.15 m2 (12/16/22 13:19:00) Height: 160.9 cm (12/16/22 13:19:00) Weight: 103.69 kg (12/16/22 13:19:00) DOSING Height/Length Dosin cm (12/30/22 17:03:45) Weight Dosin kg (12/30/22 17:03:46) Respiratory Shift Summary Breath Sounds: Clear Shift Treatments: None Shift Events: None Respiratory Protocol??Aerosol Therapy Assessment and Scoring Lung History (1) Smoking history less than 1 pack/day, History of lung disease(Asthma) Breath Sounds (0) Clear in all cooper Respiratory Rate (0) Less than or equal to 18 Modified Liam Scale or Observed Dyspnea (0) None Oxygen Therapy (0) Room air, at baseline home O2, post-op, or CHF Home Respiratory Medications (0) None Inhaler Use Assessment ? Clinically Stable? Yes? Can take a slow deep breath on command? Yes? Can perform a 3 second breath hold? Yes Respiratory total Score: 1 Respiratory Guidelines 0-2 pts - No Therapy indicated Electronically Signed on 12/30/22 08:47 PM Topher Loja Physician Emergency department Note * Wanda Farah MD: PERFORM Event Display: ED Note Physician Authored Date: [id number] ROBERT ARREAGA :1950 Age:72 years Sex:Female Visit Date:12/30/2022 Primary Care Physician: Henrry Hodge MD Basic Information Time Seen: Wanda Farah MD / 12/30/2022 16:57 Chief Complaint Pt sent in by [facility] for 4 days of intermittent R side flank pain with nausea and subjective fever. History Of Present Illness: Patient reports??she has had some intermittent??right flank pain??and abdominal pain??also some nausea and fever.?? She reports yesterday was worse than today??and feels like she may be improving.?? No ear nose or throat pain no chest pain no cough??positive nausea??no constipation no urinary issues no extremity edema no skin rashes Review of Systems: see hpi for ros Physical Exam Vitals & Measurements T:??36.2?C ??(Temporal Artery)?? HR:??67??(Peripheral)?? RR:??16?? BP:??162/94?? SpO2:??96%?? HT:??162.000??cm?? WT:??99.00??kg??(Estimated)?? Pain Score:??4?? O2 Therapy:??Room air?? General: Alert and oriented, well nourished,?No??acute distress Eye: PER?Normal??conjunctiva,??No??scleral icterus HENT: Normocephalic,??nontraumatic??Normal hearing Neck: Supple, non-tender,?No??JVD,?No??lymphadenopathy Lungs: Clear to auscultation,?Non-labored?? respiration Heart:?Normal?? rate,?Regular??rhythm,?No??murmur,?No??gallop,?No??edema Chest: wall excursion wnl no abnormal movements no obvious deformities Abdomen: Soft, moderate tenderness right side of abdomen??more right upper quadrant??than??right??lateral lower??positive right??flank area pain??of the right SI is greater then??flank area??pain, non-distended,?Normal?? bowel sounds,?No??masses Musculoskeletal:?Normal?? range of motion and strength,?No??tenderness,?No??swelling Skin: Skin is warm, dry and pink,?No??rashes,?No??lesions Neurologic: Awake, alert and oriented X4 Psychiatric: Cooperative, appropriate mood and affect Medical Decision Making: For MDM please see under assessment and plan Procedure No Qualifying Data Assessment/Plan 1.??Acute cholecystitis??K81.0 Patient with right upper quadrant abdominal pain I think her flank pain is related to her??gallbladder??and abdominal pain??CT shows??1.8 cm??impacted stone??with??suggestion of acute cholecystitis. ??Patient placed on Rocephin 2 g??IV.?? Patient received 1 L of IV fluids of normal saline and 4 mg of Zofran here in the emergency??department??with improvement in symptoms. ??Patient's white count is??within normal limits at this point.?? Patient??has had some nausea and also??has felt like she has been febrile over the last couple of days.?? Spoke with Dr. Owusu he will see??the patient tomorrow. ??Patient will be admitted to the hospitalist service.?? I think patient's flank pain is related to her gallbladder area pain??in her??right sacroiliac pain??is likely??musculoskeletal??sympathy toher right flank pain. Ordered: Decision to Admit, 12/30/22 19:24:00 EDT, Medical Unit ?? 2.??Flank pain??R10.9 See above. Ordered: Decision to Admit, 12/30/22 19:24:00 EDT, Medical Unit ?? Orders: Rocephin, 2 g = 1 EA, IV Piggyback, Powder-Inj, Once, Antibiotic Indication Skin/Soft- Tissue Infection, Administer over: 0.5 hr, First Dose: 12/30/22 19:23:00 EDT, Stop Date: 12/30/22 19:23:00 EDT, Physician Stop, STAT, 200 mL/hr SARS-CoV-2 (COVID-19) RNA (ID Now), Nasopharyngeal Swab, Stat Collect, 12/30/22 19:22:00 EDT, Once,Nurse collect, Print Label Medication Reconciliation Unchanged acetaminophen-codeine (acetaminophen-codeine 300 mg-30 mg oral tablet)1 tab every 8 hours. ?? albuterol (Ventolin HFA 90 mcg/inh inhalation aerosol)1 Puffs Inhale (breathe in) every 4 hours as needed as needed for wheezing. ?? ascorbic acid (Vitamin C 1000 mg oral tablet)1 tab Oral (given by mouth) every day. ?? buPROPion (buPROPion 150 mg/12 hours (SR) oral tablet, extended release)1 tab Oral (given by mouth)2 times a day. ?? Delica Lancets ?? dilTIAZem (dilTIAZem 180 mg/24 hours oral capsule, extended release)1 Capsules Oral (given by mouth) every day. ?? lisinopril-hydroCHLOROthiazide (lisinopril-hydroCHLOROthiazide 20 mg-25 mg oral tablet)1 tab Oral (given by mouth) every day. ?? melatonin (Melatonin Gummies) ?? multivitamin (multivitamin adult, oral tablet) ?? omega-3 polyunsaturated fatty acids (Fish Oil 1000 mg oral capsule) ?? pantoprazole (pantoprazole 40 mg oral delayed release tablet)1 tab Oral (given by mouth) every day. ?? propranolol (propranolol 20 mg oral tablet)1 tab Oral (given by mouth) 2 times a day. ?? simvastatin (simvastatin 40 mg oral tablet)1 tab Oral (given by mouth) every night at bedtime. ?? traZODone (traZODone 50 mg oral tablet)1 tab every night at bedtime. Problem List/Past Medical History Ongoing Adjustment disorder Anxiety Asthma Chronic GERD Colon polyp Depression Essential tremor Fatigue Hernia of abdominal wall HPV in female Hyperlipemia Hypertension Obesity Osteoarthritis, knee Prediabetes Sciatica Venous insufficiency Historical GERD with apnea Procedure/Surgical History ???Colonoscopy (11/18/2021)???Hemorrhoidectomy???hand surgery???Reconstruction of esophagus???[place] arthroplasty Medication Administration Given NS bolus, 1000 mL, Hydration Bolus Zofran, 4 mg, IV Push Allergies Chantix Dust Fiorinal Hay Lyrica gabapentin penicillin V potassium??(Hives) Social History Alcohol Never Electronic Cigarette/Vaping Electronic Cigarette Use: Never. Home/Environment Feels unsafe at home: No. Substance Use Never Tobacco Former tobacco user Tobacco Use:.- Comments: Quit 2020 Family History Cancer: Sister and Grandmother (M). Stroke: Father. Lab Results CBC and Differential?? LATEST RESULTS?? WBC?? 12/30/22 17:24?? 7.0?? RBC?? 12/30/22 17:24?? 4.3?? Hgb?? 12/30/22 17:24?? 12.9?? Hct?? 12/30/22 17:24?? 38.5?? MCV?? 12/30/22 17:24?? 90.0?? MCH?? 12/30/22 17:24?? 30.1?? MCHC?? 12/30/22 17:24?? 33.5?? RDW-CV?? 12/30/22 17:24?? 12.5?? Platelets?? 12/30/22 17:24?? 294?? Neutro Auto?? 12/30/22 17:24?? 61.0?? Lymph Auto?? 12/30/22 17:24?? 22.1?? [place] Auto?? 12/30/22 17:24?? 9.1?? Eos, Auto?? 12/30/22 17:24?? 5.8?? Basophil Auto?? 12/30/22 17:24?? 1.1 ??High?? Imm Gran Auto?? 12/30/22 17:24?? 0.9?? Neutro Absolute?? 12/30/22 17:24?? 4.3? Routine Chemistry?? LATEST RESULTS?? Sodium Level?? 12/30/22 17:24?? 138?? Potassium Level?? 12/30/22 17:24?? 3.8?? Chloride Level?? 12/30/22 17:24?? 102?? CO2?? 12/30/22 17:24?? 28?? Alk Phos?? 12/30/22 17:24?? 272 ??High?? AST?? 12/30/22 17:24?? 121 ??High?? ALT?? 12/30/22 17:24?? 381 ??High?? BUN?? 12/30/22 17:24?? 18?? Glucose Level?? 12/30/22 17:24?? 111 ??High?? Creatinine Level?? 12/30/22 17:24?? 1.30 ??High?? eGFR AA?? 12/30/22 17:24?? 43 ??Low?? eGFR Non-AA?? 12/30/22 17:24?? 43 ??Low?? Calcium Level?? 12/30/22 17:24?? 9.0?? Protein Total?? 12/30/22 17:24?? 7.1?? Albumin Level?? 12/30/22 17:24?? 3.1 ??Low?? Bilirubin Total?? 12/30/22 17:24?? 1.2 ??High? UA Macroscopic?? LATEST RESULTS?? UA Color?? 12/30/22 18:03?? Dark Yellow?? UA Appear?? 12/30/22 18:03?? Clear?? UA Glucose?? 12/30/22 18:03?? Negative?? UA Bili?? 12/30/22 18:03?? 1+ Abnormal?? UA Ketones?? 12/30/22 18:03?? Negative?? UA Spec Grav?? 12/30/22 18:03?? 1.010?? UA Blood?? 12/30/22 18:03?? Negative?? UA pH?? 12/30/22 18:03?? 6.0?? UA Protein?? 12/30/22 18:03?? Negative?? UA Urobilinogen?? 12/30/22 18:03?? Positive Abnormal?? UA Nitrite?? 12/30/22 18:03?? Negative?? UA Leuk Est?? 12/30/22 18:03?? Negative? Electronically Signed on 12/30/22 07:27 PM Wanda Farah MD Emergency department Note * Dinorah Quiroz: PERFORM Event Display: ED Notes Authored Date: [id number] Progress note * Francoise BLOODSalo MD: PERFORM Event Display: Progress Note - Physician Authored Date: [id number] ROBERT ARREAGA :1950 Age:72 years Sex:Female Visit Date:12/30/2022 Primary Care Physician: Gavin FISCHER, Henrry Zabala MD Anticipated Discharge Date Today Subjective Slept well last night??pain well controlled??tolerating diet Looking forward to discharge Objective Vitals & Measurements T:??37.5?C ??(Temporal Artery)?? TMIN:??36.7?C ??(Temporal Artery)?? TMAX:??37.5?C ??(Temporal Artery)?? HR:??75??(Peripheral)?? HR:??75??(Monitored)?? RR:??18?? BP:??164/72?? SpO2:??95%?? WT:??106.2??kg?? Pain Score:??6?? O2 Therapy:??Room air?? Physical Exam Sitting up at bedside??eating Serosanguineous bloody drainage in TRAY no bile Abdomen??distended less tender Assessment/Plan 1.??Acute cholecystitis??K81.0 Status post laparoscopic cholecystectomy??Home today??plan to??the patient??out of the office have her drain removed??01/05/2023 2.??Impacted gallstone of gallbladder??K80.20 3.??HTN (hypertension)??I10 4.??HLD (hyperlipidemia)??E78.5 5.??Major depressive disorder??F32.9 6.??Hypomagnesemia??E83.42 7.??Abdominal pain??R10.9 8.??Asthma??J45.909 9.??Essential tremor??G25.0 10.??Sciatica??M54.30 11.??Anemia??D64.9 Electronically Signed on 01/02/23 10:03 AM Salo Reddy MD * Brice Christine DO: PERFORM Event Display: Progress Note - Physician Authored Date: [id number] ROBERT ARREAGA :1950 Age:72 years Sex:Female Visit Date:12/30/2022 Primary Care Physician: Gavin [facility], Henrry Zabala MD Subjective 72-year-old woman??with a history of??hypertension, hyperlipidemia, depression,??asthma,??GERD,??essential tremor,??prediabetes and sciatica who presented with??an impacted gallstone and is status post??laparoscopic cholecystectomy yesterday. ?? This morning??she reports her pain??to be 8 or 9 out of 10??and having had a??poor night of sleep. ?? Her inflammatory marker and white cell count are little bit elevated this morning which may be??postsurgical changes. ?? She does not feel that her pain is much better today. ?? She remains on meropenem. Review of Systems Abdominal pain is most prominent.?Insomnia has been bothering her.?? Denies chest pain, dyspnea,palpitations, dizziness, headaches, sudden visual changes, cough, or new peripheral edema. Objective Vitals & Measurements T:??37.5?C ??(Temporal Artery)?? TMIN:??35.8?C ??(Temporal Artery)?? TMAX:??37.5?C ??(Temporal Artery)?? HR:??70??(Peripheral)?? RR:??19?? BP:??144/85?? SpO2:??94%?? Pain Score:??5?? O2 Flow Rate:??1?? O2 Therapy:??Room air?? Physical Exam General: Alert and oriented woman who appears stated age in no acute distress??as she lays comfortably but??with some distress with abdominal palpation; ??apparent full command of cognitive faculties HEENT: Normocephalic; normal facial movements; extraocular muscle movements apparently normal; necksupple without adenopathy; no evidence of thyromegaly or nodularity Cardiovascular: S1-S2; ??no noted murmurs, rubs or gallops Pulmonary: Good air movement bilaterally with no wheezes, rales or rhonchi Abdomen??mild distention with??tenderness to??light palpation;??right-sided Jerrod-Morrow??drain inplace Skin: Warm and dry; no rashes Neurological: Moves all extremities; no focal deficits; cranial nerves 3, 4, 6, 7, 8, 11, and 12 within normal limits Musculoskeletal: No edema; no obvious arthropathy Psych: normal affect; apparently euthymic; no abnormal thoughts or hallucinations evident.?? Assessment/Plan 1.??Acute cholecystitis??K81.0 Status postcholecystectomy. ?? Still having substantial pain,??increased white cell count, and increased inflammatory marker. ?? Continue meropenem. ?? We will see how she does through the day. ?? Gallstone was partially eroding into the duodenum. ?? Plan will be at this point to remove the drain on January 05??in the office, according to her surgeon. 2.??Impacted gallstone of gallbladder??K80.20 Now status postcholecystectomy.?? Expect she will improve??with time. 3.??HTN (hypertension)??I10 Blood pressure reasonably controlled currently. 4.??HLD (hyperlipidemia)??E78.5 Continue her statin. 5.??Major depressive disorder??F32.9 Continue her trazodone and bupropion. 6.??Hypomagnesemia??E83.42 Replace her magnesium today??and recheck in the morning. 7.??Abdominal pain??R10.9 Oxycodone and morphine are available. Orders: magnesium sulfate, 1 g = 100 mL, IV Piggyback, Soln-IV, every 1 hr for 2 doses, Administer over: 1 hr, First Dose: 01/01/23 9:20:00 EDT, Stop Date: 01/01/23 11:19:00 EDT, Physician Stop, Routine, 100mL/hr Disposition:??May discharge to home later today but more likely tomorrow??if??she continues to progress.?? Would like to see her white cell count, pain, and inflammatory marker??improving. Electronically Signed on 01/01/23 09:32 AM Brice Christine DO * Francoise BLOOD, Salo Dixon MD: PERFORM Event Display: Progress Note - Physician Authored Date: [id number] ROBERT ARREAGA :1950 Age:72 years Sex:Female Visit Date:12/30/2022 Primary Care Physician: Gavin FISCHER, Henrry Zabala MD Subjective Postop day #1??laparoscopic cholecystectomy??for??infected??inflamed gallbladder?? She had a difficult time sleeping last night??probably because of the activity of the hospital??herpain is controlled Tolerating liquids Objective Vitals & Measurements T:??37.5?C ??(Temporal Artery)?? TMIN:??35.8?C ??(Temporal Artery)?? TMAX:??37.5?C ??(Temporal Artery)?? HR:??70??(Peripheral)?? RR:??19?? BP:??144/85?? SpO2:??94%?? WT:??104.8??kg?? PainScore:??5?? O2 Flow Rate:??1?? O2 Therapy:??Room air?? Physical Exam She appears in no acute distress Abdomen is mildly??distended and tender TRAY drain with some serosanguineous??blood-tinged??output??no bile Assessment/Plan 1.??Acute cholecystitis??K81.0 Status post??laparoscopic cholecystectomy for a??acutely inflamed gallbladder with large stone thatwas partially eroding into the duodenum Of the inflammatory process the TRAY was left in place Once she is discharged we will??plan to remove this??on January 05 this??is an outpatient surgery office. When she is tolerating p.o.??pain is controlled will up??be able to discharge her.?? This may be later today or tomorrow 2.??Impacted gallstone of gallbladder??K80.20 3.??HTN (hypertension)??I10 4.??HLD (hyperlipidemia)??E78.5 5.??Major depressive disorder??F32.9 Flank pain??R10.9 Orders: Diet Order, 12/31/22 17:46:00 EDT, Full Liquid Surgical Pathology [facility], AP Specimen, Routine Collect, 12/31/22 19:24:00 EDT, Once, Nurse collect, Print Label Electronically Signed on 01/01/23 08:36 AM Salo Reddy MD History and physical note * Krishan Torres TACK PULLER: PERFORM Event Display: History and Physical Authored Date: [id number] ROBERT ARREAGA Giovanny :1950 Age:72 years Sex:Female Visit Date:12/30/2022 Primary Care Physician: Gavin FISCHER, Henrry Zabala MD Chief Complaint Pt sent in by IP for 4 days of intermittent R side flank pain with nausea and subjective fever. History of Present Illness 72-year-old female patient presents to the emergency department today with complaints of??intermittent abdominal pain with nausea.?? Her ER work-up found her to have??cholecystitis with an impacted gallstone at the gallbladder neck.?? Medical history significant for anxiety/depression, asthma, GERD,??essential tremor, hyperlipidemia, hypertension.?? She is seen and evaluated at the bedside in theemergency department where she is awake, alert, oriented x3 she is not in any acute distress. ??Shedenies fever, chills, vomiting, chest pain, shortness of breath. ??Denies weakness or dizziness anddenies changes in urinary or bowel habits. ??Case was discussed with the ER physician prior to admission.?? Patient will be admitted as an inpatient??and started on IV antibiotics due to the elevatedwhite blood cell count??as well as??the nature of her cholecystitis. ??I will put a consult in for general surgery for likely cholecystectomy in the morning.?? We will continue to monitor her CBC andtrend her??metabolic profile daily as she does have a transaminitis with the??impacted gallstone.??Condition is fair. Review of Systems Constitutional: ??No fevers, ??No chills, ??No sweats Eye: ??No recent visual problems ENT: ??No ear pain, ??No nasal congestion, ??No sore throat Respiratory: ??No shortness of breath, ??No cough Cardiovascular: ??No Chest pain, ??No palpitations, ??No syncope Gastrointestinal: ??Nonausea, ??No vomiting, ??No diarrhea Genitourinary: ??No hematuria Aram/Lymph: ??No bruising tendency, ??No swollen lymph glands Endocrine: ??No excessive thirst, No excessive hunger Musculoskeletal: No back pain, No neck pain, No joint pain, No muscle pain, No decreased range of motion Integumentary: ??No rash, ??No pruritus, ??No abrasions Neurologic: Alert & oriented X 4 Psychiatric: ??No anxiety, ??No depression Physical Exam Vitals & Measurements T:??36.3?C ??(Temporal Artery)?? TMIN:??36.2?C ??(Temporal Artery)?? TMAX:??36.3?C ??(Temporal Artery)?? HR:??61??(Peripheral)?? RR:??20?? BP:??176/91?? SpO2:??97%?? HT:??162.000??cm?? WT:??99.00??kg??(Estimated)?? Pain Score:??4?? O2 Therapy:??Room air?? FiO2:??96??(%)?? General: Alert and oriented, well nourished, no acute distress. Eye: PERRL, EOMI, normal conjunctiva. HENT: Normocephalic, clear tympanic membranes, normal hearing, moist oral mucosa, no scleral icterus, no sinus tenderness. Neck: Supple, non-tender, no carotid bruits, no JVD, no lymphadenopathy. Lungs: Clear to auscultation and percussion, non-labored respiration. Heart: Normal rate, regular rhythm, no murmur, gallop or edema. Breast: No lumps, no bumps, no scars, normal nipples. Abdomen: Soft, non-tender, non-distended, normal bowel sounds, no masses. Musculoskeletal: Normal range of motion and strength, no tenderness or swelling. Skin: Skin is warm, dry and appropriate for ethnicity, no rashes or lesions. Neurologic: Awake, alert and oriented X4, CN II-XII intact. Psychiatric: Cooperative, appropriate mood and affect. Assessment/Plan 1.??Acute cholecystitis??K81.0 -??Admit as an inpatient -Consulted general surgery -Morphine, oxycodone as needed for pain medication and dosage based on pain scale --Rocephin 1 g IV daily -Tylenol for fever or headache, Zofran for nausea and vomiting -Normal saline at 100 cc/h -SCDs for DVT prophylaxis -N.p.o. except for medications -CBC, CMP, mag, Phos,??CRP in the morning Ordered: PSO Admit to Inpatient, Semi-Private Telemetry, Inpatient, Oswaldo Temple MD, 12/30/22 19:26:00 EDT, 12/30/22 19:26:00 EDT, 12/30/22 19:26:00 EDT, 2 midnights or more ?? 2.??Impacted gallstone of gallbladder??K80.20 -??Positive transaminitis -Monitor liver functions daily Ordered: PSO Admit to Inpatient, Semi-Private Telemetry, Inpatient, Oswaldo Temple MD, 12/30/22 19:26:00 EDT, 12/30/22 19:26:00 EDT, 12/30/22 19:26:00 EDT, 2 midnights or more ?? 3.??HTN (hypertension)??I10 -??Blood pressure currently under control. -Continue home medications. -Monitor vital signs closely. ?? 4.??HLD (hyperlipidemia)??E78.5 -??Continue statins ?? 5.??Major depressive disorder??F32.9 -??Currently in remission -Continue home medications ?? Orders: acetaminophen, 1,000 mg = 2 tab, Oral, Tab, every 6 hr, PRN fever, First Dose: 12/30/22 20:35:00 EDT, STAT Ventolin HFA 90 mcg/inh inhalation aerosol, mcg 1 puffs, Inhale, Aerosol, every 4 hr, PRN wheezing,First Dose: 12/30/22 20:41:00 EDT, STAT Vitamin C, 1,000 mg = 2 tab, Oral, Tab, Daily, First Dose: 12/30/22 20:41:00 EDT, STAT atorvastatin, 20 mg = 2 tab, Oral, Tab, Daily, First Dose: 12/31/22 17:00:00 EDT, Routine buPROPion, 150 mg, Oral, Tab-ER, BID, First Dose: 12/30/22 20:41:00 EDT, STAT Rocephin, 1 g = 1 EA, IV Piggyback, Powder-Inj, Daily, Antibiotic Indication Abdominal, biliary infection, Administer over: 0.5 hr, First Dose: 12/30/22 20:35:00 EDT, STAT, 200 mL/hr lidocaine 1% injectable solution, 1 mg 0.1 mL, Intradermal, Soln, As Directed, PRN other (see comment), First Dose: 12/30/22 20:35:00 EDT, STAT morphine, 2 mg = 0.4 mL, IV Push, Soln, every 2 hr, PRN pain, severe, First Dose: 12/30/22 20:35:00EDT, STAT multivitamin adult, oral tablet, 1 tab, Oral, Tab, Once, First Dose: 12/30/22 20:42:00 EDT, Stop Date: 12/30/22 20:42:00 EDT, Physician Stop, STAT [place]-3 1000 mg oral capsule, 1 g = 1 cap, Oral, Cap, Once, First Dose: 12/30/22 20:42:00 EDT, StopDate: 12/30/22 20:42:00 EDT, Physician Stop, STAT ondansetron, 4 mg = 2 mL, IV Push, Soln, every 6 hr, PRN nausea/vomiting, First Dose: 12/30/22 20:35:00 EDT, STAT oxyCODONE, 5 mg = 1 tab, Oral, Tab, every 6 hr, PRN pain, moderate, First Dose: 12/30/22 20:35:00 EDT, STAT pantoprazole, 40 mg = 1 tab, Oral, Tab-DR, Daily, First Dose: 12/30/22 20:43:00 EDT, STAT propranolol, 20 mg = 2 tab, Oral, Tab, BID, First Dose: 12/30/22 20:44:00 EDT, STAT Normal Saline Flush, 10 mL, IV Push, Soln, every 12 hr (dinesh), First Dose: 12/30/22 20:35:00 EDT, STAT Sodium Chloride 0.9% 1,000 mL, Total Volume (mL): 1,000, 1,000 mL, Soln-IV, IV, 30 mL/hr, Start Date: 12/30/22 20:35:00 EDT, 99 kg, Populate Charting Weight From Order, 2.11, m2 Sodium Chloride 0.9% with KCl 20 mEq/L 1,000 mL, Total Volume (mL): 1,000, 1,000 mL, Soln-IV, IV, 100 mL/hr, Start Date: 12/30/22 20:35:00 EDT, 99 kg, Populate Charting Weight From Order, 2.11, m2 lisinopril-hydroCHLOROthiazide 20 mg-25 mg oral tablet, 20/25 mg, Oral, Tab, Daily, First Dose: 12/30/22 20:41:00 EDT, STAT traZODone, 50 mg = 1 tab, Oral, Tab, every night at bedtime, First Dose: 12/30/22 21:00:00 EDT, Routine Ambulate as Tolerated, 12/30/22 20:35:00 EDT, PRN C-Reactive Protein, Blood, Routine, 12/30/22 20:35:00 EDT, every morning, for 3 days, Lab Collect CBC w/ Diff, Blood, Routine, 12/30/22 20:35:00 EDT, every morning, for 3 days, Lab Collect Comprehensive Metabolic Panel, Blood, Routine, 12/30/22 20:35:00 EDT, every morning, for 3 days, Lab Collect Consult to General Surgery, Routine, cholecystitis, Francoise FISCHER, Salo Dixon MD Diet Order, 12/31/22 0:05:00 EDT, NPO, Except medications Magnesium Level, Blood, Routine, 12/30/22 20:35:00 EDT, every morning, for 3 days, Lab Collect Notify Provider of Vital Signs, 12/30/22 20:35:00 EDT, SpO2 < 92% on 2L O2 NC, T > 101.5, HR > 100, HR < 50, SBP greater than 160, SBP less than 90, DBP greater than 90, DBP less than 50,Resp Rate greater than 30, Resp Rate less than 8, Constant Indicator Phosphorus Level, Blood, Routine, 12/30/22 20:35:00 EDT, every morning, for 3 days, Lab Collect Resuscitation Status, 12/30/22 20:35:00 EDT, Full Code RT Eval and Treat Protocol, 12/30/22 20:35:00 EDT, Stop date 12/30/22 20:35:00 EDT, Geri Khan RN Saline Lock Insert, 12/30/22:35:00 EDT, Once, Stop date 12/30/22 20:35:00 EDT Vital Signs, 12/30/22 20:35:00 EDT, Constant order, every 4 hrs Weight, 12/30/22 20:35:00 EDT, every morning Home meds have been reviewed and reconciled within the medical record ?? Is a full code with family listed as healthcare surrogate Problem List/Past Medical History Ongoing Adjustment disorder Anxiety Asthma Chronic GERD Colon polyp Depression Essential tremor Fatigue Hernia of abdominal wall HPV in female Hyperlipemia Hypertension Obesity Osteoarthritis, knee Prediabetes Sciatica Venous insufficiency Historical GERD with apnea Procedure/Surgical History ???Colonoscopy (11/18/2021)???Hemorrhoidectomy???hand surgery???Reconstruction of esophagus???[place] arthroplasty Medications Inpatient acetaminophen, 1000 mg= 2 tab, Oral, every 6 hr, PRN atorvastatin, 20 mg= 2 tab, Oral, Daily buPROPion, 150 mg, Oral, BID lidocaine 1% injectable solution, 1 mg= 0.1 mL, Intradermal, As Directed, PRN lisinopril-hydroCHLOROthiazide 20 mg-25 mg oral tablet, 20/25 mg, Oral, Daily morphine, 2 mg= 0.4 mL, IV Push, every 2 hr, PRN multivitamin adult, oral tablet, 1 tab, Oral, Once Normal Saline Flush, 10 mL, IV Push, every 12 hr (dinesh) [place]-3 1000 mg oral capsule, 1 g= 1 cap, Oral, Once ondansetron, 4 mg= 2 mL, IV Push, every 6 hr, PRN oxyCODONE, 5 mg= 1 tab, Oral, every 6 hr, PRN pantoprazole, 40 mg= 1 tab, Oral, Daily propranolol, 20 mg= 2 tab, Oral, BID Rocephin Sodium Chloride 0.9% 1,000 mL, 1000 mL, IV Sodium Chloride 0.9% with KCl 20 mEq/L 1,000 mL, 1000 mL, IV traZODone, 50 mg= 1 tab, Oral, every night at bedtime Ventolin HFA 90 mcg/inh inhalation aerosol, 1 puffs, Inhale, every 4 hr, PRN Vitamin C, 1000 mg= 2 tab, Oral, Daily Home acetaminophen-codeine 300 mg-30 mg oral tablet, 1 tab, every 8 hr buPROPion 150 mg/12 hours (SR) oral tablet, extended release, 150 mg= 1 tab, Oral, BID Delica Lancets Fish Oil 1000 mg oral capsule lisinopril-hydroCHLOROthiazide 20 mg-25 mg oral tablet, 1 tab, Oral, Daily Melatonin Gummies multivitamin adult, oral tablet pantoprazole 40 mg oral delayed release tablet, 40 mg= 1 tab, Oral, Daily propranolol 20 mg oral tablet, 20 mg= 1 tab, Oral, BID simvastatin 40 mg oral tablet, 40 mg= 1 tab, Oral, every night at bedtime traZODone 50 mg oral tablet, 50 mg= 1 tab, every night at bedtime Ventolin HFA 90 mcg/inh inhalation aerosol, 1 puffs, Inhale, every 4 hr, PRN Vitamin C 1000 mg oral tablet, 1000 mg= 1 tab, Oral, Daily Allergies Chantix Dust Fiorinal Hay Lyrica gabapentin penicillin V potassium??(Hives) Social History Alcohol Never Electronic Cigarette/Vaping Electronic Cigarette Use: Never. Home/Environment Feels unsafe at home: No. Substance Use Never Tobacco Former tobacco user Tobacco Use:.- Comments: Quit 2020 Family History Cancer: Sister and Grandmother (M). Stroke: Father. Immunizations Vaccine Date Status SARS-CoV-2 (COVID-19) mRNA-1273 vaccine 08/02/2021 Recorded SARS-CoV-2 (COVID-19) mRNA-1273 vaccine 01/24/2021 Recorded SARS-CoV-2 (COVID-19) mRNA-1273 vaccine 06/14/2020 Recorded SARS-CoV-2 (COVID-19) mRNA-1273 vaccine 05/17/2020 Recorded Lab Results Test Name Test Result Date/Time WBC 7.0 x10^3/mcL 12/30/2022 17:24 EDT RBC 4.3 x10^6/mcL 12/30/2022 17:24 EDT Hgb 12.9 g/dL 12/30/2022 17:24 EDT Hct 38.5 % 12/30/2022 17:24 EDT MCV 90.0 fL 12/30/2022 17:24 EDT MCH 30.1 pg 12/30/2022 17:24 EDT MCHC 33.5 g/dL 12/30/2022 17:24 EDT RDW-CV 12.5 % 12/30/2022 17:24 EDT Platelets 294 x10^3/mcL 12/30/2022 17:24 EDT Neutro Auto 61.0 % 12/30/2022 17:24 EDT Lymph Auto 22.1 % 12/30/2022 17:24 EDT [place] Auto 9.1 % 12/30/2022 17:24 EDT Eos, Auto 5.8 % 12/30/2022 17:24 EDT Basophil Auto 1.1 % 12/30/2022 17:24 EDT Imm Gran Auto 0.9 % 12/30/2022 17:24 EDT Neutro Absolute 4.3 x10^3/mcL 12/30/2022 17:24 EDT Sodium Level 138 mmol/L 12/30/2022 17:24 EDT Potassium Level 3.8 mmol/L 12/30/2022 17:24 EDT Chloride Level 102 mmol/L 12/30/2022 17:24 EDT CO2 28 mmol/L 12/30/2022 17:24 EDT Alk Phos 272 unit/L 12/30/2022 17:24 EDT AST 121 unit/L 12/30/2022 17:24 EDT ALT 381 unit/L 12/30/2022 17:24 EDT BUN 18 mg/dL 12/30/2022 17:24 EDT Glucose Level 111 mg/dL 12/30/2022 17:24 EDT Creatinine Level 1.30 mg/dL 12/30/2022 17:24 EDT eGFR AA 43 12/30/2022 17:24 EDT eGFR Non-AA 43 12/30/2022 17:24 EDT Calcium Level 9.0 mg/dL 12/30/2022 17:24 EDT Protein Total 7.1 g/dL 12/30/2022 17:24 EDT Albumin Level 3.1 g/dL 12/30/2022 17:24 EDT Bilirubin Total 1.2 mg/dL 12/30/2022 17:24 EDT UA Color Dark Yello 12/30/2022 18:03 EDT UA Appear CLEAR. 12/30/2022 18:03 EDT UA Glucose NEGATIVE 12/30/2022 18:03 EDT UA Bili 1+ 12/30/2022 18:03 EDT UA Ketones NEGATIVE 12/30/2022 18:03 EDT UA Spec Grav 1.010 12/30/2022 18:03 EDT UA Blood NEGATIVE 12/30/2022 18:03 EDT UA pH 6.0 12/30/2022 18:03 EDT UA Protein NEGATIVE 12/30/2022 18:03 EDT UA Urobilinogen 1.0 Uro 12/30/2022 18:03 EDT UA Nitrite NEGATIVE 12/30/2022 18:03 EDT UA Leuk Est NEGATIVE 12/30/2022 18:03 EDT SARS-CoV-2 (COVID-19) RNA (ID Now) Not Detected 12/30/2022 19:24 EDT Diagnostic Results ??CT abdomen pelvis ?? IMPRESSION:?? Suspected impacted 1.8 cm gallstone in the gallbladder neck with?? findings suggesting acute cholecystitis. Electronically Signed on 12/30/22 08:50 PM Krishan Torres NP, Richard Brian MD: PERFORM Event Display: History and Physical Authored Date: [id number] I saw and evaluated Ms Arreaga??on 12/31/2022. ??The case was discussed on rounds with TACK PULLER Brian??. Ipersonally reviewed the HPI, PH, FH, SH, ROS and medications. I repeated pertinent portions of the examination and reviewed the relevant imaging and laboratory data. I agree with the findings, assessment and plan as documented. At this time, based on her current clinical condition and treatment, I expect the patient to remain in the hospital less than 2 days.?Patient admitted with??increasing frequency??of right upper quadrant abdominal pain associated with??meals.?? Patient reports last several episodes of been the worst ever??and??the last episode??did not resolve. ??She also reporting having episode of fever and chills prior to arrival.?? PCP recommended she come in when she reported having orange urine.?? Evaluation in the ED with CT scan shows impacted??1.8 cm gallstone??at the bladder neck.?? Several other??small calcified stones were also noted.?? Patient placed on broad-spectr um antibiotic therapy and surgery consulted.?? Plans for laparoscopic cholecystectomy later this afternoon.?? Patient is pain-free at the time of my exam. Electronically Signed on 12/31/22 09:06 AM Oswaldo Temple MD Discharge summary * Brice Christine DO: PERFORM Event Display: Discharge Summary Authored Date: [id number] ROBERT ARREAGA :1950 Age:72 years Sex:Female Visit Date:12/30/2022 Primary Care Physician: Gavin BLOODHenrry MD Hospital Course Discharge Summary ?? Date of admission:??12/30/2022 ?? Date of discharge:??01/02/2023 ?? Discharge diagnoses:??Cholecystitis, status postcholecystectomy ?? Consultations:??Salo Owusu MD of surgery ?? Operations/procedures:??Laparoscopic cholecystectomy on 12/31/2022 ?? Summary of presentation and course ?? 72-year-old ex-smoker presented with??4 days of waxing and waning right flank and abdominal pain??without fever.?? She did have nausea and anorexia.?? She was found to have acute cholecystitis with impacted??stone in the??gallbladder neck.?? She was seen in consultation by Dr. Owusu for surgical service who brought her to surgery??the following day.?? Her stone had partially eroded into the??duodenum suggesting that it may have been more chronic.?? However she does not have peritonitis or significant leukocytosis.?? First postop day was??marked by a lots of pain and nausea but by day 2 she was markedly improved,??able to tolerate??liquids without difficulty and starting soft diet.?? There was no fever.?? She has mild dyspnea due to her chronic intermittent??mild asthma, she uses albuterolfor that. ??There was no sign of pneumonia.?? She was anemic postoperatively??due to the illness itself. ?? She has a TRAY drain in place??and will follow-up with Dr. Owusu of surgery on Thursday??to have this removed. ?? She was treated initially with??Zosyn which was transitioned to meropenem.?? Her surgeon felt??she had had sufficient??antibiotics in her hospital course and she will not be sent home with oral antibiotics. ?? Disposition:??She will discharge to home today independently to continue recovery.?? She will follow-up with Dr. Owusu on 01/05/2023??for removal of her drain.?? She will follow-up with Dr. Alonso, her primary care doctor,??within a week??for assessment as well. ?? Greater than 30 minutes was spent on the day of discharge in coordinating care and arranging outpatient follow-up. Physical Exam Vitals & Measurements T:??37.5?C ??(Temporal Artery)?? TMIN:??36.7?C ??(Temporal Artery)?? TMAX:??37.5?C ??(Temporal Artery)?? HR:??75??(Peripheral)?? HR:??75??(Monitored)?? RR:??18?? BP:??164/72?? SpO2:??95%?? WT:??106.2??kg?? Pain Score:??6?? O2 Therapy:??Room air?? Procedure/Surgical History ???Colonoscopy (11/18/2021)???Hemorrhoidectomy???hand surgery???Reconstruction of esophagus???[place] arthroplasty Social History Alcohol Never Electronic Cigarette/Vaping Electronic Cigarette Use: Never. Home/Environment Feels unsafe at home: No. Substance Use Never Tobacco Former tobacco user Tobacco Use:.- Comments: Quit 2020 Discharge Plan 1.??Acute cholecystitis??K81.0 2.??Impacted gallstone of gallbladder??K80.20 3.??HTN (hypertension)??I10 4.??HLD (hyperlipidemia)??E78.5 5.??Major depressive disorder??F32.9 6.??Hypomagnesemia??E83.42 7.??Abdominal pain??R10.9 8.??Asthma??J45.909 9.??Essential tremor??G25.0 10.??Sciatica??M54.30 11.??Anemia??D64.9 Orders: Discharge Bathing Instructions, Keep drain site dry Discharge Diet Instruction, Regular home diet Discharge Patient, 01/02/23 11:31:00 EDT, Home Independently, Home Independently Follow-up in the office with Dr. Owusu early next week and with Dr. Alonso as planned Discharge Surgical Wound Instructions, Keep drain site dry All Diagnoses This Visit Acute cholecystitis Impacted gallstone of gallbladder HTN (hypertension) HLD (hyperlipidemia) Major depressive disorder Hypomagnesemia Abdominal pain Asthma Essential tremor Sciatica Anemia Patient Instructions Advance diet as tolerated. ?? You will likely need??mild laxative like senna tablets??for constipation, due to your increased pain meds. ?? Call if you have fever, worsening pain or severe shortness of breath. ?? Follow Dr. Owusu's instructions for managing your drain.?? We will plan to pull that??early next week.?? I will see you in 1 week.?? dr Alonso Patient Education Cholecystostomy, Care After Cholecystitis Follow Up With When Contact Information Gavin [facility], Henrry Zabala MD Within [address] [phone] [phone] Additional Instructions: Francoise BLOOD, Salo Dixon MD Within 3 to [address] [place] [phone]- Additional Instructions: Medication Reconciliation Changed buPROPion (buPROPion 150 mg/12 hours (SR) oral tablet, extended release)1 tab Oral (given by mouth)every day. ?? melatonin (Melatonin Gummies)2 gummies Chewed every night at bedtime. ?? omega-3 polyunsaturated fatty acids (Fish Oil 1000 mg oral capsule)1 Capsules Oral (given by mouth)every day. ?? propranolol (propranolol 20 mg oral tablet)1 tab Oral (given by mouth) every day. ?? Unchanged acetaminophen-codeine (acetaminophen-codeine 300 mg-30 mg oral tablet)1 tab every 8 hours. ?? albuterol (Ventolin HFA 90 mcg/inh inhalation aerosol)1 Puffs Inhale (breathe in) every 4 hours as needed as needed for wheezing. ?? ascorbic acid (Vitamin C 1000 mg oral tablet)1 tab Oral (given by mouth) every day. ?? Delica Lancets ?? lisinopril-hydroCHLOROthiazide (lisinopril-hydroCHLOROthiazide 20 mg-25 mg oral tablet)1 tab Oral (given by mouth) every day. ?? multivitamin (multivitamin adult, oral tablet) ?? pantoprazole (pantoprazole 40 mg oral delayed release tablet)1 tab Oral (given by mouth) every day. ?? simvastatin (simvastatin 40 mg oral tablet)1 tab Oral (given by mouth) every night at bedtime. ?? traZODone (traZODone 50 mg oral tablet)1 tab every night at bedtime. ?? Discontinued dilTIAZem (dilTIAZem 180 mg/24 hours oral capsule, extended release)1 Capsules Oral (given by mouth) every day. Electronically Signed on 01/02/23 11:34 AM Brice Christine DO * Gavin BLOOD, Henrry Zabala MD: PERFORM Event Display: Discharge Summary Authored Date: [id number] ROBERT ARREAGA :1950 Age:72 years Sex:Female Visit Date:12/30/2022 Primary Care Physician: Gavin FISCHER, Henrry Zabala MD Hospital Course 72-year-old ex-smoker presented with??4 days of waxing and waning right flank and abdominal pain??without fever.?? She did have nausea and anorexia.?? She was found to have acute cholecystitis with impacted??stone in the??gallbladder neck.?? She was seen in consultation by Dr. Owusu for surgical service who brought her to surgery??the following day.?? Her stone had partially eroded into the??duodenum suggesting that it may have been more chronic.?? However she does not have peritonitis or significant leukocytosis.?? First postop day was??marked by a lots of pain and nausea but by day 2 she was markedly improved,??able to tolerate??liquids without difficulty and starting soft diet.?? There was no fever.?? She has mild dyspnea due to her chronic intermittent??mild asthma, she uses albuterolfor that. ??There was no sign of pneumonia.?? She was anemic postoperatively??due to the illness itself. Physical Exam Vitals & Measurements T:??37.5?C ??(Temporal Artery)?? TMIN:??36.7?C ??(Temporal Artery)?? TMAX:??37.5?C ??(Temporal Artery)?? HR:??76??(Peripheral)?? RR:??18?? BP:??164/72?? SpO2:??94%?? WT:??106.2??kg?? PainScore:??6?? O2 Therapy:??Room air?? Afebrile, sitting up, alert and in good spirits. ?? Neck supple, no pharyngitis ?? Lungs a fair intensity throughout, respirations unlabored,??single??expiratory wheezes in the??peripheral right lung field today. ??No dullness. ?? Heart regular no murmur gallop ?? Abdomen soft, ammonia still operator around her surgical site,??bowel sounds are present ?? Extremities??trace edema only, warm, pulses intact Procedure/Surgical History ???Colonoscopy (11/18/2021)???Hemorrhoidectomy???hand surgery???Reconstruction of esophagus???[place] arthroplasty Social History Alcohol Never Electronic Cigarette/Vaping Electronic Cigarette Use: Never. Home/Environment Feels unsafe at home: No. Substance Use Never Tobacco Former tobacco user Tobacco Use:.- Comments: Quit 2020 Discharge Plan 1.??Acute cholecystitis??K81.0 Complicated by early erosion into the duodenum.?? White count has been down for 48 hours and she isafebrile. ??I think antibiotics can be stopped at discharge, but will check with the surgeon about that.?? She is likely need another 3 to 5 days of opioid pain management for the abdomen.?? She is also chronically on very low-dose of opioids for??sciatica.?? She has not yet seen Dr. Owusu but anticipate discharge later today. 2.??Impacted gallstone of gallbladder??K80.20 3.??HTN (hypertension)??I10 Blood pressure elevated with her pain. ??She is back on her usual meds. 4.??HLD (hyperlipidemia)??E78.5 Continue statin 5.??Major depressive disorder??F32.9 In remission 6.??Hypomagnesemia??E83.42 Resolved, magnesium normal today 7.??Abdominal pain??R10.9 Above 8.??Asthma??J45.909 Mild intermittent, just needs as needed albuterol 9.??Essential tremor??G25.0 She is on oral propanolol for this at low-dose. ??That has not worsened her wheezing. 10.??Sciatica??M54.30 Will initially be on higher dose of??opioids for her??perioperative pain, then??resume her??chroniclow-dose of??hydrocodone. 11.??Anemia??D64.9 Hematocrit is dropped due to her acute illness. ??She did not have??major bleeding with her surgery.?? This is likely to recover with nutrition alone, she should just add a multivitamin with iron??at??discharge. All Diagnoses This Visit Acute cholecystitis Impacted gallstone of gallbladder HTN (hypertension) HLD (hyperlipidemia) Major depressive disorder Hypomagnesemia Abdominal pain Asthma Essential tremor Sciatica Anemia Patient Instructions Advance diet as tolerated. ?? You will likely need??mild laxative like senna tablets??for constipation, due to your increased pain meds. ?? Call if you have fever, worsening pain or severe shortness of breath. ?? Follow Dr. Owusu's instructions for managing your drain.?? We will plan to pull that??early next week.?? I will see you in 1 week.?? dr Alonso Patient Education Cholecystostomy, Care After Cholecystitis Follow Up With When Contact Information Gavin [facility], Henrry Zabala MD Within [address] [address] [phone] Additional Instructions: Francoise [facility] Within 3 to [address] [place] [phone]- Additional Instructions: Medication Reconciliation Changed buPROPion (buPROPion 150 mg/12 hours (SR) oral tablet, extended release)1 tab Oral (given by mouth)every day. ?? melatonin (Melatonin Gummies)2 gummies Chewed every night at bedtime. ?? omega-3 polyunsaturated fatty acids (Fish Oil 1000 mg oral capsule)1 Capsules Oral (given by mouth)every day. ?? propranolol (propranolol 20 mg oral tablet)1 tab Oral (given by mouth) every day. ?? Unchanged acetaminophen-codeine (acetaminophen-codeine 300 mg-30 mg oral tablet)1 tab every 8 hours. ?? albuterol (Ventolin HFA 90 mcg/inh inhalation aerosol)1 Puffs Inhale (breathe in) every 4 hours as needed as needed for wheezing. ?? ascorbic acid (Vitamin C 1000 mg oral tablet)1 tab Oral (given by mouth) every day. ?? Delica Lancets ?? lisinopril-hydroCHLOROthiazide (lisinopril-hydroCHLOROthiazide 20 mg-25 mg oral tablet)1 tab Oral (given by mouth) every day. ?? multivitamin (multivitamin adult, oral tablet) ?? pantoprazole (pantoprazole 40 mg oral delayed release tablet)1 tab Oral (given by mouth) every day. ?? simvastatin (simvastatin 40 mg oral tablet)1 tab Oral (given by mouth) every night at bedtime. ?? traZODone (traZODone 50 mg oral tablet)1 tab every night at bedtime. ?? Discontinued dilTIAZem (dilTIAZem 180 mg/24 hours oral capsule, extended release)1 Capsules Oral (given by mouth) every day. Electronically Signed on 01/02/23 09:37 AM Henrry Hodge MD Patient Care team information Care Team Personnel Name: Henrry Hodge MD Position: Physician Member Role: Informed Provider Address: Address: [address] [place] [id number] Name: Farhat Palencia RN Position: Nurse Member Role: ED Nurse Name: Judy Llanos Position: Nurse Member Role: ED Nurse Name: Wanda Farah MD Position: Physician Member Role: ED Physician Address: Address: [address] [place] [address] Care Team Related Persons Name: BENJI HARVEY Name: NADINE WOODALL
--- OUTSIDE RECORDS SUMMARY | 2024-02-24 22:42 | XMS_ITS | Continuity of Care Document ---
Author Organization [facility] Address [address] [place] [address] Care Team Providers Care Bark Tanner Name Role Phone Henrry Hodge Primary Care Physician Encounter [facility] Date(s): 05/15/22 - 05/15/[address] [address] Discharge Disposition: Home or Self Care Attending Physician: Henrry Hodge MD Admitting Physician: Henrry Hodge MD Referring Physician: Henrry Hodge MD Allergies, Adverse Reactions, Alerts Substance Reaction Severity Status gabapentin Unknown Active penicillin V potassium Hives Unknown Activ e Hay Unknown Active Fiorinal Unknown Active Lyrica Unknown Active Chantix Unknown Active Dust Unknown Active Immunizations Given [...] release 150 mg = 1 tab, Oral, BID, # 180 tab, 0 Refill(s) Start Date: 10/29/21 Status: Ordered Delica Lancets 0 Refill(s) Start Date: 10/28/21 Status: Ordered dilTIAZem 180 mg/24 hours oral capsule, extended release 180 mg = 1 cap, Oral, Daily, # 30 cap, 0 Refill(s) Start Date: 10/29/21 Status: Ordered Fish Oil 1000 mg oral capsule 0 Refill(s) Start Date: 10/28/21 Status: Ordered lisinopril-hydroCHLOROthiazide 20 mg-25 mg oral tablet 1 tab, Oral, Daily, # 30 tab, 0 Refill(s) Start Date: 10/29/21 Status: Ordered multivitamin adult, oral tablet 0 Refill(s) Start Date: 10/28/21 Status: Ordered pantoprazole 40 mg oral delayed release tablet 40 mg = 1 tab, Oral, Daily, # 30 tab, 0 Refill(s) Start Date: 10/29/21 Status: Ordered propranolol 20 mg oral tablet 20 mg = 1 tab, Oral, BID, # 180 tab, 0 Refill(s) Start Date: [...] Physician Member Role: Informed Provider Address: Address: [address] [place] [phone] [place] Care Team Related Persons Name: BENJI HARVEY Address: Home Name: NADINE WOODALL Address: Home
--- OUTSIDE RECORDS SUMMARY | 2024-02-24 22:42 | XMS_ITS | Encounter Summary ---
Author Organization [facility] Address [address] [place] [address] Care Team Providers Care Model Artists' Name Role Phone Md FREDERICK Royal Primary Care Provider Unavaila ble Encounter Details Date Type Department Care Team (Late st Contact Info) Description 04/01/2010 Results Only [facility] Laboratory Services - [facility] ([facility]) [address] [place], [place] [address] Kade Alonso MD [address] [place] [address] Social History Tobacco Use Types Packs/Day Years [...] Procedure Name Priority Date/Time Associated Diagnosis Comments CYTOPATHOLOGY Routine 04/01/2010 0:00 EST documented in this encounter Results * CYTOPATHOLOGY (04/01/2010 0:00 EST) Pathology Report: CYTOPATHOLOGY REPORT ? Reports generated via electronic interface contain original data; ? however they are lacking the format of the original report. ? Caution should be taken when reading/interpreti ng unformatted reports. ? Name: ? WHITLEY, ROBERT ? Accession #: ? [id number] ? : ? 1950 (Age: 59) ??F ?Collect Date: ? 04/01/2010 ? Location: ? [facility] ? Receive Date: ? 04/02/2010 ? Provider: KADE E PRIMEAU MD ? Copy to: ? Final Report ? SPECIMEN ADEQUACY ? Satisfactory for Evaluation ? - transformation zone component absent ? GENERAL CATEGORIZATION ? Negative for Intraepithelial Lesion or Malignancy ? Last Menstural Period: 03/09/1998 ? Specimen/Source: ??Pap Test, Cervix, ThinPrep Imaging System with manual ? evaluation ? Document reviewed and electronically signed by: ? Taila Lyons, SCT(ASCP) ? Report ??Date: 04/09/2010 12:04 ? HPV with Pap Test ? Date Ordered: ? 04/09/2010 ? Status: ?? Signed Out ?Date Complete: ? 04/11/2010 ? By: ??System Interface ? Date Reported: ? 04/11/2010 ? Interpretation ? RESULT: Positive for one or more of HPV types 16,18,31,33,35,39, 45, ? 51,52,56,58,59, or 68. These high/intermediate risk HPV ? types are associated with dysplasia and some cervical ? cancers. ? Comments ? Document reviewed and electronically signed by: ? System Interface ? Report date: 04/11/2010 ? By the signature above, the attending physician certifies that he/she has ? personally conducted a gross and/or microscopic examination of the described ? specimens and rendered or confirmed the above diagnosis. ? End of Report ? [facility] 04/01/2010 04/02/2010 us Kade Alonso MD PATHOLOGY ORDERABLES Final R esult Performing Organization Address City/State/[facility] Co de Phone Number [facility] [address] [place] [address] documented in this encounter Visit Diagnoses Not on filedocumented in this encounter Care Teams Model Artists' Relationship Specialty Start Date End Date Md Royal MD PCP - General 04/02/10 10/06/21 documented as of this encounter
--- OUTSIDE RECORDS SUMMARY | 2024-02-24 22:42 | XMS_ITS | Encounter Summary ---
Author Organization [facility] Address [facility] [place] [address] Care Team Providers Care Loan Originator Name Role Phone Henrry Alonso MD Primary Care Provider [phone] Encounter Details Date Type Department Care Team (Latest Contact Info) Description 09/02/2017 9:26 PM EDT - 09/02/2017 11:59 PM EDT Hospital [place] [address] Discharge Disposition: Home Social History Tobacco Use Types Packs/Day Years Used Date Smoking Tobacco: Never Assessed Sex and Gender Information Value Date Recorded Sex Assigned at Not on file Gender Identity Not on file Sexual Orientation Not on file documented as of this encounter Plan of Treatment Not on file documented as of this encounter Procedures Procedure Name Priority Date/Time Associated Diagnosis Comments SURGICAL PATHOLOGY REPORT Routine 09/02/2017 4:18 PM EDT documented in this encounter Results * Surgical Pathology Report (09/02/2017 4:18 PM EDT) Final Diagnosis [id number] ? Location: [facility] The signing pathologist has (i) examined the relevant preparation(s) for the specimen(s) and (ii) rendered or confirmed the diagnosis(es). . ?Surgical Pathology DIAGNOSIS A - Antrum, ??biopsy: - Antrum-type mucosa with mild reactive gastropathy. B - Distal esophagus, ?? biopsy: - Squamous mucosa negative for diagnostic abnormality. Electronically signed by: ??Gavin Graff MD Verified: ??09/04/2017 ?Pathologist Performed at: ??-[facility] [place], [place], [place] CLINICAL INFORMATION Specimen Submitted: A - Antrum bx B - Distal esophagus bx Clinical History and Diagnosis: Dysphagia. 13 years out from fundoplication. Referring Identifier: ?(not provided) Report to: Henrry Alonso SPECIMEN PROCESSING A - Labeled/Fixativ e: Antrum biopsy, formalin. Quantity/Size: Two, 0.2 cm. Tissue Description: Soft, rome-pink tissue. Sections/Proces sing: (T1) B - Labeled/Fixativ e: Distal esophagus biopsy, formalin. Quantity/Size: Two, 0.2 cm. Tissue Description: Soft, rome-pink tissue. Sections/Proces sing: (T1) ??pps 09/04/2017 1:28 PM EDT [facility] GI Biopsy 09/02/2017 4:18 PM EDT 09/02/2017 4:18 PM EDT GI Biopsy 09/02/2017 4:18 PM EDT 09/02/2017 4:18 PM EDT Krishan Nelson DO PATHOLOGY/CYT OLOGY ORDERABLES [facility] [place] [address] documented in this encounter Visit Diagnoses Not on filedocumented in this encounter Care Teams Loan Originator Relationship Specialty Start Date End Date Henrry Alonso MD [address] [place] [id number] PCP - General 01/29/10 documented as of this encounter
== END 2024-02-24 22:30 | disposition home or self-care (01) ==
LOC: NCHCN 22:29
PROVIDERS: PCP Internal Medicine; Visit Provider Internal Medicine
DX: T81.41XD Infection following a procedure, superficial incisional surgical site, subsequent encounter (principal); K13.79 Other lesions of oral mucosa
CPT/HCPCS: 87070; 87205

== ENCOUNTER 2024-06-09 14:47 | Outpatient (REF) | payer MEDICARE, MEDICAID, SELFPAY ==
[2024-06-09 20:22] LABS: ALT 25 U/L (14-59); Anion Gap 6.1 mmol/L (3-11); BUN 29 mg/dL (7-18); CO2 30.9 mmol/L (21.0-32.0); CREATININE 1.5 mg/dL (0.55-1.02); Calcium 9.5 mg/dL (8.5-10.1); Calculated LDL 75 mg/dL (<100); Chloride 106 mmol/L (98-107); Cholesterol 168 mg/dL (<200); Estimated GFR 36.34 (mL/min/1.73m2); Glucose 116 mg/dL (74-106); HDL Cholesterol 53 mg/dL (>or=50); Potassium 4.2 mmol/L (3.5-5.1); Sodium 143 mmol/L (136-145); Triglyceride 204 mg/dL (<150)
[2024-06-09 20:33] LABS: Creatine Kinase 43 U/L (26-192)
== END 2024-06-09 14:48 | disposition home or self-care (01) ==
LOC: NCHCN 14:47
PROVIDERS: PCP Internal Medicine; Visit Provider Internal Medicine
DX: E78.5 Hyperlipidemia, unspecified (principal); I10 Essential (primary) hypertension
CPT/HCPCS: 80048; 80061; 82550; 84460